=== PATIENT | female | born 1945 | race Caucasian/White ===

== ENCOUNTER 2017-01-27 08:58 | Outpatient (CLI) | payer MEDICARE ==
[2017-01-27 09:39] LABS: HCT - HEMATOCRIT 43.7 % (37.0-47.0); HGB - HEMOGLOBIN 14.4 g/dL (12.0-16.0); MEAN CORPUSCULAR HEMOGLOBIN 29.4 pg (27.0-31.0); MEAN CORPUSCULAR HGB CONC 33.1 g/dL (32.0-36.0); MEAN PLATELET VOLUME 8.8 fL (7.9-10.8); RED BLOOD COUNT 4.91 10^6/uL (4.20-5.40); RED CELL DISTRIBUTION WIDTH 13.9 % (12.0-15.0); WHITE BLOOD COUNT 6.4 x10^3/uL (4.8-10.8)
[2017-01-27 10:04] LABS: ALBUMIN/GLOBULIN RATIO 1.5 (1.0-2.2); BILIRUBIN,TOTAL 0.9 mg/dL (0.2-1.0); BUN - BLOOD UREA NITROGEN 10 mg/dL (6-20); CALCIUM 10.3 mg/dL (8.5-10.3); CARBON DIOXIDE - CO2 24 mmol/L (21-32); CHLORIDE 104 mmol/L (101-111); CHOL/HDL RATIO 5.3 (<4.4); CHOLESTEROL 218 mg/dL; CREATININE 0.7 mg/dL (0.4-1.0); GFR - MDRD 82 (>89); GLUCOSE 110 mg/dL (70-100); HDL CHOLESTEROL 41 mg/dL; LDL/HDL RATIO 3.6 (<4.4); POTASSIUM 3.7 mmol/L (3.5-5.0); SODIUM 136 mmol/L (135-145); TOTAL PROTEIN 7.4 g/dL (6.7-8.2); TRIGLYCERIDES 151 mg/dL; VLDL CHOLESTEROL 30 mg/dL
== END 2017-01-27 08:59 | disposition home or self-care (01) ==
LOC: LAB 08:58
PROVIDERS: ATTEND Internal Medicine
DX: E78.2 Mixed hyperlipidemia (principal); I10 Essential (primary) hypertension; E55.9 Vitamin D deficiency, unspecified; D50.9 Iron deficiency anemia, unspecified; Z79.899 Other long term (current) drug therapy
CPT/HCPCS: 36415; 80053; 80061; 82306; 84443

== ENCOUNTER 2017-10-01 08:16 | Outpatient (CLI) | payer MEDICARE ==
[2017-10-01 08:37] LABS: HGB - HEMOGLOBIN 15.3 g/dL (12.0-16.0); MEAN CORPUSCULAR HEMOGLOBIN 29.7 pg (27.0-31.0); MEAN CORPUSCULAR HGB CONC 33.4 g/dL (32.0-36.0); MEAN PLATELET VOLUME 8.8 fL (7.9-10.8); RED BLOOD COUNT 5.14 10^6/uL (4.20-5.40); RED CELL DISTRIBUTION WIDTH 14.3 % (12.0-15.0); WHITE BLOOD COUNT 7.9 x10^3/uL (4.8-10.8)
[2017-10-01 09:05] LABS: ALBUMIN 4.3 g/dL (3.2-5.5); ALBUMIN/GLOBULIN RATIO 1.4 (1.0-2.2); ALKALINE PHOSPHATASE 95 IU/L (42-121); ALT ALANINE AMINOTRANSFERASE 50 IU/L (10-60); AST ASPARTATE AMINOTRANSFERASE 33 IU/L (10-42); BILIRUBIN,TOTAL 0.7 mg/dL (0.2-1.0); BUN - BLOOD UREA NITROGEN 10 mg/dL (6-20); CARBON DIOXIDE - CO2 25 mmol/L (21-32); CHLORIDE 104 mmol/L (101-111); CHOL/HDL RATIO 4.1 (<4.4); CHOLESTEROL 215 mg/dL; CREATININE 0.7 mg/dL (0.4-1.0); GFR - MDRD 82 (>89); GLUCOSE 107 mg/dL (70-100); HDL CHOLESTEROL 52 mg/dL; LDL CHOLESTEROL,CALCULATED 143 mg/dL; LDL/HDL RATIO 2.8 (<4.4); SODIUM 140 mmol/L (135-145); TOTAL PROTEIN 7.3 g/dL (6.7-8.2); VLDL CHOLESTEROL 20 mg/dL
[2017-10-01 09:26] LABS: THYROID STIMULATING HORMONE 2.99 uIU/mL (0.34-5.60)
[2017-10-01 09:28] LABS: FREE T4 (FREE THYROXINE) 0.79 ng/dL (0.58-1.64)
== END 2017-10-01 08:17 | disposition home or self-care (01) ==
LOC: LAB 08:16
PROVIDERS: ATTEND Internal Medicine
DX: E78.2 Mixed hyperlipidemia (principal); I10 Essential (primary) hypertension; D50.9 Iron deficiency anemia, unspecified; E55.9 Vitamin D deficiency, unspecified
CPT/HCPCS: 36415; 80053; 80061; 83721; 83970; 84439; 84443

== ENCOUNTER 2018-03-02 14:23 | Outpatient (CLI) | payer MEDICARE ==
--- NOTE | 2018-03-02 15:56 | DEXA Report ---
Procedure Date: 03/02/2018 Accession Number: [id number] / [id number] Procedure: DEX - Dexa Spine and/or Hip CPT Code: FULL RESULT: EXAM: Dexa Spine and/or Hip DATE: 03/02/2018 3:13 PM CLINICAL HISTORY: HYPERPARATHYROIDISM TECHNIQUE: Dual energy x-ray absorptiometry (DXA) was performed on a Bottlenose System. Regions measured are the AP Spine, femoral neck, and if needed forearm. COMPARISON: None. In accordance with the International Society for Clinical Densitometry (ISCD) guidelines, data from previous exams may be reanalyzed using current recommendations and techniques. This is done to allow a more accurate basis for comparison with the current study. FINDINGS: The data for the lumbar spine is as follows: BMD (g/cm/cm) T-SCORE Z-SCORE REGION L1 0.849 -2.3 -1.4 L2 0.958 -2.0 -1.1 L3 0.848 -2.9 -2.0 L4 1.021 -1.5 -0.5 TOTAL 0.923 -2.1 -1.2 NOTE: All evaluable vertebrae are used for classification The data for the hip is as follows: BMD (g/cm/cm) T-SCORE Z-SCORE REGION Neck 0.684 -2.5 -1.2 TOTAL 0.822 -1.5 -0.4 NOTE: The femoral neck or total proximal femur, whichever is lowest, is used for classification. IMPRESSION: THE WHO CLASSIFICATION BASED ON THE INTERNATIONAL REFERENCE STANDARD IS OSTEOPOROSIS. THE FRACTURE RISK IS HIGH. RECOMMENDATION: Patients with diagnosis of osteoporosis or osteopenia should have regular bone mineral density assessment. For those eligible for Medicare, routine testing is allowed once every 2 years. Testing frequency can be increased for patients who have rapidly progressing disease or for those who are receiving medical therapy to restore bone mass. COMMENT: World Health Organization (WHO) definitions for osteoporosis and osteopenia: NORMAL BMD: T-score at -1.0 or higher, fracture risk is low OSTEOPENIA BMD: T-score between -1.0 and -2.5, fracture risk is increased. OSTEOPOROSIS BMD: T-score at -2.5 or lower, fracture risk is high. National Osteoporosis Foundation recommends: 1. Obtain adequate dietary calcium (at least 1200 mg per day) and vitamin D (400-800 international units per day). 2. Participate, as appropriate, in regular weightbearing and muscle-strengthening exercise. 3. Avoid tobacco use and reduce alcohol and caffeine intake. 4. For more detailed information see the website at www.NOF.org.
== END 2018-03-02 14:24 | disposition home or self-care (01) ==
LOC: DI 14:23
PROVIDERS: ATTEND Internal Medicine Endocrinology, Diabetes & Metabolism
DX: M81.0 Age-related osteoporosis without current pathological fracture (principal)
CPT/HCPCS: 77080

== ENCOUNTER 2018-03-07 08:30 | Outpatient (CLI) | payer MEDICARE | END 2018-03-07 08:31 | disposition home or self-care (01) | LOC: LAB.R 08:30 | PROVIDERS: ATTEND Internal Medicine Endocrinology, Diabetes & Metabolism | DX: E21.3 Hyperparathyroidism, unspecified (principal) | CPT/HCPCS: 82340 ==

== ENCOUNTER 2018-03-19 09:25 | Outpatient (CLI) | payer MEDICARE ==
--- NOTE | 2018-03-19 15:42 | Nuclear Medicine Report ---
REVISED: THIS REPORT WAS ORIGINALLY SIGNED ON 03/19/2018 @ 1543. EXAM CODE REVISED ON 04/14/2018. Procedure Date: 03/19/2018 Accession Number: [id number] / [id number] Procedure: NM - Parathyroid Planar Imaging CPT Code: FULL RESULT: EXAM: PARATHYROID SCAN WITH SESTAMIBI, PLANAR AND SPECT IMAGING EXAM DATE: 03/19/2018 01:11 PM. CLINICAL HISTORY: Hyperparathyroidism. COMPARISON: None. TECHNIQUE: Following the intravenous administration of 23.3 mCi Tc-99m sestamibi, planar images of the neck and upper chest were acquired immediately, and at one and two hours post injection. Additionally, a SPECT image was acquired according to the protocol; images were reconstructed in the axial, coronal, and sagittal projections. FINDINGS: The multiple planar sestamibi images demonstrate normal back on salivary gland uptake as well as the hyperintense focus in the region of the inferior right thyroid Gland. The SPECT sestamibi images demonstrate a hyperintense focus in the region of the right lower thyroid gland. Right anterior ectopic parathyroid adenoma in the region of the inferior right thyroid gland lobe. No significant abnormalities in the remainder of the study. IMPRESSION: Scintigraphic findings are consistent with a parathyroid adenoma at the right lower pole of the thyroid gland. Further anatomic correlation with thyroid ultrasound can be obtained. RADIA MTDD
== END 2018-03-19 09:26 | disposition home or self-care (01) ==
LOC: DI 09:25
PROVIDERS: ATTEND Internal Medicine Endocrinology, Diabetes & Metabolism
DX: E21.0 Primary hyperparathyroidism (principal)
CPT/HCPCS: 78070; 78071

== ENCOUNTER 2018-05-19 19:08 | Outpatient (CLI) | payer MEDICARE ==
--- NOTE | 2018-05-20 15:06 | Ultrasound Report ---
Reason: HYPERPARATHYROIDISM Procedure Date: 05/19/2018 Accession Number: [id number] / [id number] Procedure: US - Head or Neck Soft Tissue CPT Code: FULL RESULT: EXAM: THYROID ULTRASOUND EXAM DATE: 05/19/2018 07:48 PM. CLINICAL HISTORY: Hyperparathyroidism. COMPARISON: Parathyroid nuclear medicine scan 03/19/2018. Thyroid ultrasound 12/15/2014. TECHNIQUE: Real time sonographic imaging of the thyroid was performed by the airplane inspector. Multiple artists' booking representative static images were saved for review. FINDINGS: THYROID GLAND: Right Lobe: 2.4 x 2.4 x 5.0 cm, volume 14.6 cc. Normal background echotexture. Right Lobe Nodules: None. Left Lobe: 1.9 x 1.9 x 5.6 cm, volume 10.5 cc. Normal background echotexture. Left Lobe Nodules: 0.6 x 0.5 x 0.8 cm, 0.13 cc, avascular hypoechoic lesion superior pole unchanged. 0.4 x 0.4 x 0.5 cm, 0.04 cc, isoechoic avascular nodule mid pole unchanged. No new nodules. Isthmus: 0.5 cm AP. Isthmic Nodules: None. LYMPH NODES: No adenopathy demonstrated in the central or lateral compartment. OTHER: 1.2 x 1.6 x 2.3 cm, 2.4 cc, grossly stable well-defined hypoechoic avascular lesion with low level internal echoes abutting the posterior inferior aspect right lobe of the thyroid. This corresponds to the area of hyperintense focus on the previous nuclear medicine exam. IMPRESSION: 1. Stable 1.2 x 1.6 x 2.3 cm abnormality posterior to the inferior right lobe thyroid consistent with parathyroid adenoma. Stability would be atypical for parathyroid carcinoma. 2. Several small incidental left thyroid nodules. 3. No dominant thyroid nodule. Management recommendations are based on 2015 [place] [employer] Management Guidelines for Adult Patients with Thyroid Nodules and Differentiated Thyroid Cancer. RADIA
== END 2018-05-19 19:09 | disposition home or self-care (01) ==
LOC: DI 19:08
PROVIDERS: ATTEND Student in an Organized Health Care Education/Training Program
DX: E21.3 Hyperparathyroidism, unspecified (principal)
CPT/HCPCS: 76536

== ENCOUNTER 2018-06-08 15:14 | Outpatient (CLI) | payer MEDICARE | END 2018-06-08 15:15 | disposition home or self-care (01) | LOC: RT 15:14 | PROVIDERS: ATTEND Internal Medicine Gastroenterology | DX: I10 Essential (primary) hypertension (principal) | CPT/HCPCS: 93005 ==

== ENCOUNTER 2018-06-10 11:41 | Day surgery (SDC) | payer MEDICARE ==
[2018-06-10] MEDS ORDERED: MIDAZOLAM 2 MG/2 ML VIAL IVP ONE (11:42)
[2018-06-10] MEDS ORDERED: fentaNYL 250 MCG/5 ML VIAL IVP ONE (11:42)
[2018-06-10] MEDS ORDERED: LACTATED RINGERS 1,000 ML IV ONE ×2 (12:05→14:32)
[2018-06-10 12:30] LABS: CALCIUM 10.5 mg/dL (8.5-10.3); CREATININE 0.6 mg/dL (0.4-1.0)
[2018-06-10 15:24] VITALS: BP 140/70
== END 2018-06-10 11:42 | disposition home or self-care (01) ==
LOC: SDS 11:41
PROVIDERS: ATTEND Internal Medicine Gastroenterology
PROC: 0DBP8ZZ Excision of Rectum, Via Natural or Artificial Opening Endoscopic (ICD-10-PCS; principal; 2018-06-10 12:45)
DX: Z12.11 Encounter for screening for malignant neoplasm of colon (principal); C20 Malignant neoplasm of rectum; K57.30 Diverticulosis of large intestine without perforation or abscess without bleeding; I10 Essential (primary) hypertension; E21.3 Hyperparathyroidism, unspecified; E78.5 Hyperlipidemia, unspecified; F41.9 Anxiety disorder, unspecified; E66.9 Obesity, unspecified; Z68.34 Body mass index [BMI] 34.0-34.9, adult; N32.81 Overactive bladder
CPT/HCPCS: 45385; 80048; J3010; J7120

== ENCOUNTER 2018-06-16 15:00 | Outpatient (CLI) | payer MEDICARE ==
[2018-06-16 15:31] LABS: BASOPHILS # (AUTO) 0.1 10^3/uL (0.0-0.1); BASOPHILS % (AUTO) 0.9 %; EOSINOPHILS # (AUTO) 0.1 10^3/uL (0.0-0.7); EOSINOPHILS % (AUTO) 0.8 %; HGB - HEMOGLOBIN 13.6 g/dL (12.0-16.0); LYMPHOCYTES # (AUTO) 2.5 10^3/uL (1.5-3.5); LYMPHOCYTES % (AUTO) 33.5 %; MEAN CORPUSCULAR HEMOGLOBIN 30.4 pg (27.0-31.0); MEAN CORPUSCULAR HGB CONC 34.1 g/dL (32.0-36.0); MEAN CORPUSCULAR VOLUME 89.1 fL (81.0-99.0); MEAN PLATELET VOLUME 8.5 fL (7.9-10.8); MONOCYTES # (AUTO) 0.6 10^3/uL (0.0-1.0); MONOCYTES % (AUTO) 8.5 %; NEUTROPHILS # (AUTO) 4.3 10^3/uL (1.5-6.6); NEUTROPHILS % (AUTO) 56.3 %; PLT - PLATELET COUNT 247 10^3/uL (130-450); RED BLOOD COUNT 4.49 10^6/uL (4.20-5.40); RED CELL DISTRIBUTION WIDTH 13.8 % (12.0-15.0); WHITE BLOOD COUNT 7.6 x10^3/uL (4.8-10.8)
[2018-06-16 15:40] LABS: ALBUMIN/GLOBULIN RATIO 1.2 (1.0-2.2); BILIRUBIN,TOTAL 0.9 mg/dL (0.2-1.0); CALCIUM 10.4 mg/dL (8.5-10.3); CREATININE 0.7 mg/dL (0.4-1.0); TOTAL PROTEIN 7.4 g/dL (6.7-8.2)
== END 2018-06-16 15:01 | disposition home or self-care (01) ==
LOC: LAB 15:00
PROVIDERS: ATTEND Internal Medicine Gastroenterology
DX: C20 Malignant neoplasm of rectum (principal); E21.3 Hyperparathyroidism, unspecified
CPT/HCPCS: 36415; 80053; 82378; 85025

== ENCOUNTER 2018-06-18 09:38 | Outpatient (CLI) | payer MEDICARE ==
[2018-06-18] MEDS ORDERED: IOVERSOL 320 50 ML VIAL ONE (10:15)
[2018-06-18] MEDS ORDERED: IOPAMIDOL-300 100 ML VIAL ONE (10:15)
[2018-06-18] MEDS ORDERED: IOPAMIDOL-300 100 ML VIAL IVP ONE (11:00)
--- NOTE | 2018-06-18 15:40 | CT Report ---
Reason: HYPERPARATHYROIDISM, RECTAL CANCER Procedure Date: 06/18/2018 Accession Number: [id number] / [id number] Procedure: CT - Abdomen/Pelvis W/ CPT Code: FULL RESULT: EXAM: CT CHEST, ABDOMEN AND PELVIS EXAM DATE: 06/18/2018 11:11 AM. CLINICAL HISTORY: Hyperparathyroidism, rectal cancer. COMPARISONS: ABDOMEN/PELVIS W/ 06/18/2018 11:18 AM ABDOMEN 01/13/2008 1:48 PM CHEST W/ 06/18/2018 11:23 AM. TECHNIQUE: Routine helical CT imaging was performed through the chest, abdomen and pelvis. IV contrast: CE. Enteric contrast: No. Reconstructions: Coronal and sagittal. In accordance with CT protocol optimization, one or more of the following dose reduction techniques were utilized for this exam: automated exposure control, adjustment of mA and/or KV based on patient size, or use of iterative reconstructive technique. FINDINGS: Lungs: Minimal right middle lobe atelectasis. No suspicious pulmonary nodules. No pleural effusion or pneumothorax. Mediastinum: Mild aortic calcifications. Liver: Normal. No masses. Gallbladder/Bile Ducts: Status post cholecystectomy. Spleen: Evidence of prior granulomatous disease. Pancreas: Normal. Adrenal Glands: Mild thickening of the left greater than right adrenal glands, possible adrenal adenoma. No definite metastasis. Kidneys: Left kidney contains a 1.7 cm hypodense mass which represents a cyst versus a lipid poor angiomyolipoma in the region of the renal pelvis, stable compared to January 2008. Similarly, the right kidney demonstrates a 1.8 cm lower pole hypodense mass, not definitely seen in 2007 with imaging appearance again suggestive of less likely cyst versus a lipid poor angiomyolipoma. Both kidneys demonstrate hypodensities which are too small to characterize. Peritoneal Cavity/Bowel: Diverticulosis. Likely mass in the rectal region, correlate to a known location of rectal cancer. No overt CT evidence of local invasion into the ischioanal fossa. No free fluid, free air or adenopathy. No masses or acute inflammatory process. Pelvic Organs: There is a 6.8 cm left adnexal cystic mass. The bladder and visualized pelvic organs are within normal limits. Vasculature: No aneurysms or other significant abnormality. Bones: No significant abnormality. Other: None. IMPRESSION: 1. 6.8 cm left adnexal cystic mass. 2. 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 This could be further evaluate by ultrasound to differentiate from a cyst. 3. No definite pelvic lymphadenopathy. RADIA
== END 2018-06-18 09:39 | disposition home or self-care (01) ==
LOC: DI 09:38
PROVIDERS: ATTEND Internal Medicine Gastroenterology
DX: N94.9 Unspecified condition associated with female genital organs and menstrual cycle (principal); N28.9 Disorder of kidney and ureter, unspecified
CPT/HCPCS: 71260; 74177; Q9967

== ENCOUNTER 2018-08-26 10:43 | Day surgery (SDC) | payer MEDICARE ==
[2018-08-26] MEDS ORDERED: LACTATED RINGERS 1,000 ML IV ONE (11:07)
[2018-08-26] MEDS ORDERED: MIDAZOLAM 2 MG/2 ML VIAL IVP ONE (12:25)
[2018-08-26] MEDS ORDERED: fentaNYL 250 MCG/5 ML VIAL IVP ONE (12:25)
[2018-08-26 13:46] VITALS: BP 148/75
== END 2018-08-26 10:44 | disposition home or self-care (01) ==
LOC: SDS 10:43
PROVIDERS: ATTEND Internal Medicine Gastroenterology
PROC: 0DBP8ZX Excision of Rectum, Via Natural or Artificial Opening Endoscopic, Diagnostic (ICD-10-PCS; principal; 2018-08-26 11:45)
DX: C20 Malignant neoplasm of rectum (principal); K57.30 Diverticulosis of large intestine without perforation or abscess without bleeding; N94.89 Other specified conditions associated with female genital organs and menstrual cycle; E21.3 Hyperparathyroidism, unspecified; R19.09 Other intra-abdominal and pelvic swelling, mass and lump; I10 Essential (primary) hypertension; E66.9 Obesity, unspecified; Z68.34 Body mass index [BMI] 34.0-34.9, adult; N32.81 Overactive bladder
CPT/HCPCS: 45380; J3010; J7120; 80053

== ENCOUNTER 2018-12-21 16:53 | Outpatient (CLI) | payer MEDICARE ==
--- NOTE | 2018-12-22 12:10 | Ultrasound Report ---
Reason: F/U LT ADNEXAL MASS, UT MASS Procedure Date: 12/21/2018 Accession Number: [id number] / [id number] Procedure: US - Pelvic Complete CPT Code: FULL RESULT: EXAM: PELVIC ULTRASOUND EXAM DATE: 12/21/2018 05:31 PM. CLINICAL HISTORY: Follow up left adnexal mass, uterine mass. COMPARISON: PELVIC W/TRANSVAGINAL 01/29/2016 5:17 PM ABDOMEN/PELVIS W/ 06/18/2018 11:23 AM. TECHNIQUE: Realtime transabdominal pelvic scan performed to identify the uterus and adnexa and as an overview of other pelvic structures, with static image documentation. FINDINGS: Uterus: 9.7 x 3.7 x 5.6 cm, volume 10.5 cc. Anteverted position. Normal overall size and echotexture. Masses: None. Endometrium: 21 mm. Abnormal thickness, not well defined. Cervix: Limited visualization. Left Ovary: 7.6 x 7.0 x 8.6 cm, volume 242 cc. The 5.8 x 5.3 x 5.7 cm thick-walled cystic mass is again seen, not well characterized transabdominally. Right Ovary: Not seen Free Fluid: None. Other: None. IMPRESSION: Redemonstration of left adnexal cystic mass measuring at least 5.8 cm. Ill-defined thickened endometrium, not a normal finding in the postmenopausal state. RADIA
== END 2018-12-21 16:54 | disposition home or self-care (01) ==
LOC: DI 16:53
PROVIDERS: ATTEND Obstetrics & Gynecology
DX: N94.89 Other specified conditions associated with female genital organs and menstrual cycle (principal); R19.09 Other intra-abdominal and pelvic swelling, mass and lump
CPT/HCPCS: 76856

== ENCOUNTER 2019-01-06 15:25 | Outpatient (CLI) | payer MEDICARE | END 2019-01-06 15:26 | disposition home or self-care (01) | LOC: LAB 15:25 | PROVIDERS: ATTEND Internal Medicine Gastroenterology | DX: R19.09 Other intra-abdominal and pelvic swelling, mass and lump (principal); C20 Malignant neoplasm of rectum; N94.89 Other specified conditions associated with female genital organs and menstrual cycle | CPT/HCPCS: 36415; 81599; 82378; 86304; 86305 ==

== ENCOUNTER 2019-01-25 16:20 | Outpatient (CLI) | payer MEDICARE ==
[2019-01-25 16:41] LABS: BASOPHILS # (AUTO) 0.1 10^3/uL (0.0-0.1); BASOPHILS % (AUTO) 0.5 %; EOSINOPHILS % (AUTO) 0.3 %; HGB - HEMOGLOBIN 14.5 g/dL (12.0-16.0); LYMPHOCYTES # (AUTO) 3.7 10^3/uL (1.5-3.5); MEAN CORPUSCULAR HEMOGLOBIN 29.1 pg (27.0-31.0); MEAN CORPUSCULAR HGB CONC 31.7 g/dL (32.0-36.0); MEAN CORPUSCULAR VOLUME 91.8 fL (81.0-99.0); MEAN PLATELET VOLUME 10.5 fL (7.9-10.8); MONOCYTES # (AUTO) 0.7 10^3/uL (0.0-1.0); MONOCYTES % (AUTO) 7.7 %; NEUTROPHILS # (AUTO) 4.7 10^3/uL (1.5-6.6); NEUTROPHILS % (AUTO) 51.2 %; PLT - PLATELET COUNT 270 10^3/uL (130-450); RED BLOOD COUNT 4.98 10^6/uL (4.20-5.40); RED CELL DISTRIBUTION WIDTH 13.8 % (12.0-15.0); WHITE BLOOD COUNT 9.2 x10^3/uL (4.8-10.8)
[2019-01-25 16:53] LABS: ALBUMIN 4.4 g/dL (3.2-5.5); ALBUMIN/GLOBULIN RATIO 1.5 (1.0-2.2); BILIRUBIN,TOTAL 0.7 mg/dL (0.2-1.0); CALCIUM 11.1 mg/dL (8.5-10.3); CREATININE 0.8 mg/dL (0.4-1.0); TOTAL PROTEIN 7.4 g/dL (6.7-8.2)
== END 2019-01-25 16:21 | disposition home or self-care (01) ==
LOC: LAB 16:20
PROVIDERS: ATTEND Obstetrics & Gynecology
DX: N18.4 Chronic kidney disease, stage 4 (severe) (principal); N84.0 Polyp of corpus uteri
CPT/HCPCS: 80053; 85025; 86850; 86900; 86901

== ENCOUNTER 2019-01-26 10:52 | Day surgery (SDC) | payer MEDICARE ==
[2019-01-26] MEDS ORDERED: LIDOCAINE-MPF 2% 5 ML VIAL IM ONE (10:53)
[2019-01-26] MEDS ORDERED: LACTATED RINGERS 1,000 ML IV ONE ×2 (11:00→16:47)
--- NOTE | 2019-01-26 13:02 | ANESTHESIA ---
Pre-Anesthesia VS, & Labs - Diagnosis Endometrial polyp - Procedure Resect endometrial polyp Vital Signs: Temp Pulse Resp BP Pulse Ox 36.7 C 89 18 156/89 H 96 01/26/19 11:16 01/26/19 11:16 01/26/19 11:16 01/26/19 11:16 01/26/19 11:16 Height 5 ft 3 in Weight (kg) 88 kg - NPO >8 hours - Is Patient ?: No - Lab Results Lab results reviewed: Yes Home Medications and Allergies Home Medications: Ambulatory Orders medroxyPROGESTERone [Provera] 10 mg PO DAILY 01/26/19 Losartan [Cozaar] 50 mg PO DAILY 06/09/18 medroxyPROGESTERone [Provera] 10 mg PO DAILY 01/26/19 Allergies/Adverse Reactions: Allergies Allergy/AdvReac Type Severity Reaction Status Date / Time ciprofloxacin [From Cipro] AdvReac Unknown Verified 01/26/19 11:27 Anes History & Medical History - Anesthetic History Anesthesia Complications: reports: Post-Operative Nausea/Vomiting Family history of Anesthesia Complications: Denies Family history of Malignant Hyperthermia: Denies - Medical History Cardiovascular: reports: Hypertension Pulmonary: reports: None Gastrointestinal: reports: Colon polyps Urinary: reports: Incontinence Neuro: reports: None Musculoskeletal: reports: None Endocrine/Autoimmune: reports: None Blood Disorders: reports: None Skin: reports: None Smoking Status: Never smoker Psychosocial: reports: No issues indicated - Surgical History General: Colonoscopy Eyes Ears Nose Throat (EENT): Tonsil/Adenoidectomy Gynecologic: Other Exam General: Alert, Oriented x3 Dental: WNL Mouth Openin Fingerbreadth Neck Mobility: Reduced Mallampati classification: II Thyromental Distance: 4-6 cm Respiratory: Lungs clear Cardiovascular: Regular rate Neurological: Normal speech Mental/Cognitive Status: Alert/Oriented X3 Cognitive Status: Within normal limits Plan Anesthesia Type: General Consent for Procedure(s) Verified and Reviewed: Yes Code Status: Attempt Resuscitation ASA classification: 2-Mild systemic disease Is this case an emergency?: No
[2019-01-26] MEDS ORDERED: SCOPOLAMINE PATCH TOP ONE (13:10)
[2019-01-26] MEDS ORDERED: LIDOCAINE 1%-EPI 1:100000 20 ML MDV ONE (13:29)
[2019-01-26] MEDS ORDERED: LIDOCAINE MPF 1%-EPI 1:200000 30 ML VIAL ONE (14:30)
[2019-01-26] MEDS ORDERED: SILVER NITRATE APPLICATOR TOP ONE (14:31)
[2019-01-26] MEDS ORDERED: MIDAZOLAM 2 MG/2 ML VIAL IVP ONE (16:30)
[2019-01-26] MEDS ORDERED: fentaNYL 100 MCG/2 ML VIAL IVP ONE (16:30)
[2019-01-26] MEDS ORDERED: PROPOFOL 200 MG/20 ML VIAL IVP ONE (16:30)
[2019-01-26] MEDS ORDERED: LIDOCAINE 1%-EPI 1:100000 20 ML MDV SUBQ ONE ×2 (16:46)
[2019-01-26] MEDS ORDERED: CARBOPROST TROMETHAMINE 250 MCG/ML AMP IM ONE (16:49)
[2019-01-26] MEDS ORDERED: miSOPROStol 200 MCG TABLET ONE (16:49)
[2019-01-26] MEDS ORDERED: METHYLERGONOVINE 0.2 MG/ML AMP ONE (16:50)
[2019-01-26] MEDS ORDERED: KETOROLAC 15 MG/ML VIAL IVP PRN (17:39)
--- NOTE | 2019-01-26 17:42 | OPERATIVE REPORT ---
Operative Report - General Planned Procedure: Resection of extrauterine mass Hysteroscopy D&C/polypectomy Pre-Op Diagnosis: Large endometrial polyp protruding through introitus; postmenopausal bleedi Procedure Performed: Resection of extrauterine mass Hysteroscopy D&C/polypectomy Post Op Diagnosis: same - Procedure Note Primary Surgeon: Laron Anesthesia Technique: General ET tube Pathology: Extrauterine mass Uterine contents. Specimens sent as one sample IV Fluids (mL): 800 (750 cc NS in fluid deficit) Estimated Blood Loss (mL): 15 Urine Output (mL): 700 (Collected in Ruelas catheter AFTER patient voided) Indications: Large endometrial polyp protruding through vaginal introitus, rapidly expanding in size. Postmenopausal bleeding, increasing in volume Findings: Large polypoid mass hanging external to the vagina. Bulk of mass measured 11 cm in longtudinal direction and 4.5 cm in width. Additional stalk of polyp extended into the uterus,measuring at least 4 cm in length, but about 1 cm in width. Other polypoid tissue in the endometrial cavity. Large, flaccid uterine with boggy myometrium, gaping cervix. Bilateral tubal ostia visualized. Complications: none - Other Other Information/Narrative: PROCEDURE: Patient was consented to the risks and benefits of the procedure. Consent obtained for hysteroscopy, D&C, polpectomy/resection of mass, as well as possible hysterectomy/oophorectomy. Consents confirmed. Patient was brought to the OR and underwent general anesthesia. She was placed in dorsal lithotomy position with legs in yellow fin stirrups. The polyp was noted to be hanging from the vagina with about 10 cm externally exposed. She was prepped and draped in the usual sterile fashion. A presurgical time out was held. The polyp was then elevated and a tie on a passer was used to ligate the proximal end at its base using 3-0 Vicryl. It was ligated a second time, slightly distal the first, again using 3-0 Vicryl. The segment intervening between the ligated ends was transected using cautery. The bulk of the mass was cleared from the surgical field. A polyps forceps was inserted into the cavity and an additional 4 cm of polypoid tissue was removed. The operative hysteroscope was then inserted and the remainder of the polypoid tissue was removed with the morcellator. The uterine cavity appeared to be cleared of polypoid tissue but there was difficulty expanding the cavity to full volume given dilation of the flaccid cervix. Only minimal improvement was obtained by adding an additional tenaculum. The hysteroscope was removed. Sharp curettage was performed and the minimal residual polypoid tissue was removed. A total of 12 cc of 2% lidocaine with epinephrine was used to place a paracervical block at 4 and 8:00. Tenaculum was removed and good hemostasis was noted. Time out was performed at close of procedure. Procedure was well tolerated and without complication.
[2019-01-26] MEDS ORDERED: KETOROLAC 15 MG/ML VIAL ONE (17:44)
[2019-01-26 18:33] VITALS: BP 175/92
== END 2019-01-26 10:53 | disposition home or self-care (01) ==
LOC: SDS 10:52
PROVIDERS: ATTEND Obstetrics & Gynecology
PROC: 0UDB7ZZ Extraction of Endometrium, Via Natural or Artificial Opening (ICD-10-PCS; 2019-01-26)
PROC: 0UB98ZZ Excision of Uterus, Via Natural or Artificial Opening Endoscopic (ICD-10-PCS; principal; 2019-01-26 12:30)
DX: N84.0 Polyp of corpus uteri (principal); N95.0 Postmenopausal bleeding; I10 Essential (primary) hypertension; E66.9 Obesity, unspecified; Z68.34 Body mass index [BMI] 34.0-34.9, adult; Z79.899 Other long term (current) drug therapy
CPT/HCPCS: 58558; J3490; J7120

== ENCOUNTER 2019-02-24 15:40 | Outpatient (CLI) | payer MEDICARE ==
[2019-02-24 16:00] LABS: HGB - HEMOGLOBIN 13.9 g/dL (12.0-16.0); MEAN CORPUSCULAR HGB CONC 32.4 g/dL (32.0-36.0); MEAN CORPUSCULAR VOLUME 92.5 fL (81.0-99.0); MEAN PLATELET VOLUME 10.3 fL (7.9-10.8); RED BLOOD COUNT 4.64 10^6/uL (4.20-5.40); RED CELL DISTRIBUTION WIDTH 13.9 % (12.0-15.0); WHITE BLOOD COUNT 8.2 x10^3/uL (4.8-10.8)
[2019-02-24 16:40] LABS: % IRON SATURATION 24 % (20-50); CA 125 7.7 U/mL (0.0-35.0); FERRITIN 74.9 ng/mL (11.0-306.8); IRON 72 ug/dL (28-170); TOTAL IRON BINDING CAPACITY 302 ug/dL (250-450); TRANSFERRIN 216 mg/dL (192-382)
== END 2019-02-24 15:41 | disposition home or self-care (01) ==
LOC: LAB 15:40
PROVIDERS: ATTEND Obstetrics & Gynecology
DX: N93.9 Abnormal uterine and vaginal bleeding, unspecified (principal); D64.9 Anemia, unspecified; R53.83 Other fatigue; N84.0 Polyp of corpus uteri; N95.0 Postmenopausal bleeding; N94.89 Other specified conditions associated with female genital organs and menstrual cycle; R19.09 Other intra-abdominal and pelvic swelling, mass and lump
CPT/HCPCS: 36415; 82306; 82728; 83540; 84466; 85027; 86304

== ENCOUNTER 2019-06-26 11:13 | Outpatient (CLI) | payer MEDICARE ==
--- NOTE | 2019-06-27 02:26 | Ultrasound Report ---
Reason: ADNEXAL MASS,LEFT Procedure Date: 06/26/2019 Accession Number: [id number] / [id number] Procedure: US - Pelvic w/Transvaginal CPT Code: Final Report FULL RESULT: EXAM: PELVIC ULTRASOUND EXAM DATE: 06/26/2019 12:09 PM. CLINICAL HISTORY: ADNEXAL MASS,LEFT. COMPARISON: PELVIC W/TRANSVAGINAL 12/21/2018 5:00 PM PELVIC W/TRANSVAGINAL 01/29/2016 5:17 PM PELVIS 05/25/2013 10:36 AM. TECHNIQUE: Realtime transabdominal pelvic scan performed to identify the uterus and adnexa and as an overview of other pelvic structures, followed by transvaginal scan to provide greater detail of the uterus and adnexa, with static image documentation. FINDINGS: Uterus: 8.0 x 3.9 x 4.9 cm, volume 81.1 cc. Anteverted position. Small calcified intramuscular fibroid on the left measuring 0.4 x 0.5 x 0.5 cm. The uterus is heterogeneous in appearance. Masses: None. Endometrium: 6 mm. Ill-defined posterior border. Cervix: Nabothian cyst. Right Ovary: 1.9 x 1.0 x 2.1 cm, volume 2.0 cc. There is a suggestion of a small hypoechoic lesion, possibly a cyst measuring 0.9 x 0.7 x 0.9 cm. Left Ovary: 6.8 x 6.7 x 6.7 cm, volume 158.7 cc. Normal blood flow. The large cystic mass now measures 6.6 x 6.5 x 6.3 cm, previously 5.8 x 5.3 x 5.7 cm. No internal solid component is seen. No internal debris or vascularity is seen. The wall does not appear thickened on the transvaginal images. Free Fluid: None. Other: None. IMPRESSION: Slight increase in size of the left adnexal cystic lesion. Suggestion of small right ovarian cystic lesion. No evidence of endometrial thickening on today's exam. RADIA
== END 2019-06-26 11:14 | disposition home or self-care (01) ==
LOC: DI 11:13
PROVIDERS: ATTEND Obstetrics & Gynecology
DX: R19.09 Other intra-abdominal and pelvic swelling, mass and lump (principal); N83.8 Other noninflammatory disorders of ovary, fallopian tube and broad ligament
CPT/HCPCS: 76830; 76856

== ENCOUNTER 2019-06-29 18:50 | Emergency (ER) | payer MEDICARE ==
--- NOTE | 2019-06-29 20:10 | ED Physician Documentation ---
PD HPI HEADACHE - Stated complaint Stated Complaint: HBP/[place] - Chief complaint Chief Complaint: Cardiac - History obtained from History obtained from: Patient - History of Present Illness Timing - onset: How many weeks ago (2) Timing - onset during: Rest Timing - duration: Weeks (2) Timing - details: Gradual onset, Still present, Waxing and waning Location: Front Quality: Throbbing Associated symptoms: Stiff neck. No: Fever, Nausea, Vomiting, Weakness, Numbness, Syncope, Seizure, Eye pain, Vision changes Improved by: Rest Contributing factors: No: Anticoagulated Similar symptoms before: Has not had sx before Recently seen: Not recently seen - Additional information Additional information: 73-year-old female with a history of hypertension and hypercalcemia has developed a headache and increased blood pressure over the past 2 weeks. She has persistence of symptoms and she has now come to the emergency department for evaluation with markedly elevated blood pressure. She is taking her Cozzar and she took an extra dose of her blood pressure medication. Despite this she has continued high blood pressure. Her diastolics are ranging up to 135. She does not have change in mentation. She does have a history of hyperparathyroidism and she does not want an operation. She denies an acute salt load, alcohol withdrawal, non-compliance or dehydration is a possibility for her elevated blood pressure. Her symptoms have been present for about 2 weeks. Review of Systems Constitutional: denies: Fever Eyes: denies: Decreased vision Ears: denies: Ear pain Nose: denies: Congestion Throat: denies: Sore throat Cardiac: denies: Chest pain / pressure, Palpitations Respiratory: denies: Dyspnea, Cough GI: denies: Abdominal Pain, Nausea, Vomiting : denies: Dysuria, Frequency Skin: denies: Rash, Lesions Musculoskeletal: denies: Neck pain, Back pain, Extremity pain Neurologic: reports: Headache. denies: Generalized weakness, Focal weakness, Numbness, Difficulty speaking, Syncope, Seizure, Confused, Altered mental status, Head injury, LOC PD PAST MEDICAL HISTORY - Past Medical History Cardiovascular: Hypertension Respiratory: None Neuro: None Endocrine/Autoimmune: None GI: Colon polyps : Incontinence HEENT: None Psych: None Musculoskeletal: None Derm: None - Past Surgical History General: Colonoscopy /ASSEMBLER: Other HEENT: Tonsil/Adenoidectomy - Present Medications Home Medications: Ambulatory Orders Medication Instructions Recorded Confirmed Losartan [Cozaar] 50 mg PO DAILY 11/07/18 11/28/19 medroxyPROGESTERone [Provera] 10 mg PO DAILY 01/26/19 06/30/19 Metoprolol Succinate 25 mg PO DAILY #20 tab.er.24h 06/30/19 - Allergies Allergies/Adverse Reactions: Allergies Allergy/AdvReac Type Severity Reaction Status Date / Time ciprofloxacin [From Cipro] AdvReac Unknown Verified 06/29/19 19:01 - Social History Does the pt smoke?: No Smoking Status: Never smoker Does the pt drink ETOH?: No Does the pt have substance abuse?: No - Immunizations Immunizations are current?: Yes - POLST Patient has POLST: No PD ED PE NORMAL - Vitals Vital signs reviewed: Yes (marked hypertension ) - General General: Alert and oriented X 3, No acute distress, Well developed/nourished - HEENT HEENT: Atraumatic, PERRL, EOMI, Ears normal, Pharynx benign, Other (dry mucous membranes ) - Neck Neck: Supple, no meningeal sign, No bony TTP - Cardiac Cardiac: RRR, No murmur - Respiratory Respiratory: No respiratory distress, Clear bilaterally - Abdomen Abdomen: Normal bowel sounds, Soft, Non tender, Non distended, No organomegaly - Back Back: No CVA TTP, No spinal TTP - Derm Derm: Normal color, Warm and dry, No rash - Extremities Extremities: No deformity, Normal ROM s pain, No edema, No calf tenderness / cord - Neuro Neuro: Alert and oriented X 3, order filler 2-12 intact, No motor deficit, No sensory deficit, Normal speech Eye Opening: Spontaneous Motor: Obeys Commands Verbal: Oriented GCS Score: 15 - Psych Psych: Normal mood, Normal affect Results - Vitals Vitals: Vital Signs - 24 hr 06/29/19 06/29/19 06/29/19 18:57 19:40 19:43 Temperature 98.6 C H Heart Rate 86 80 Respiratory 14 18 Rate Blood Pressure 154/135 H 244/130 H Blood Pressure 244/130 H [Right] O2 Saturation 97 97 06/29/19 06/29/19 06/29/19 21:00 21:28 22:11 Temperature Heart Rate 79 78 76 Respiratory 16 22 20 Rate Blood Pressure 198/110 H 199/109 H 195/100 H Blood Pressure [Right] O2 Saturation 95 97 96 06/30/19 06/30/19 06/30/19 00:14 00:51 01:25 Temperature Heart Rate 83 82 70 Respiratory 23 25 H 18 Rate Blood Pressure 209/127 H 210/94 H 157/69 H Blood Pressure [Right] O2 Saturation 97 96 97 06/30/19 02:15 Temperature 36.3 C L Heart Rate 67 Respiratory 22 Rate Blood Pressure 162/73 H Blood Pressure [Right] O2 Saturation 95 Oxygen O2 Source Room air - EKG (time done) 2115 Rate: Rate (enter#) (74) Rhythm: NSR Ischemia: Normal ST segments Compare to prior EKG: Unchanged from prior EKG (SPT 06-08-2018 no sig change) Computer interpretation: Agree with computer - Labs Labs: Laboratory Tests 06/29/19 06/29/19 06/29/19 20:40 20:40 21:55 WBC 8.8 RBC 4.80 Hgb 14.5 Hct 44.0 MCV 91.7 MCH 30.2 MCHC 33.0 RDW 13.8 Plt Count 249 MPV 10.9 H Neut # (Auto) 5.1 Lymph # (Auto) 2.9 [place] # (Auto) 0.7 Eos # (Auto) 0.1 Baso # (Auto) 0.1 Absolute Nucleated RBC 0.00 Nucleated RBC % 0.0 Sodium 139 Potassium 3.9 Chloride 104 Carbon Dioxide 27 Anion Gap 8.0 BUN 12 Creatinine 0.7 Estimated GFR (MDRD) 82 L Glucose 123 H Calcium 12.1 H* Total Bilirubin 0.5 AST 28 ALT 37 Alkaline Phosphatase 80 Total Protein 7.9 Albumin 4.7 Globulin 3.2 Albumin/Globulin Ratio 1.5 Lipase 62 H Urine Color LT. YELLOW Urine Clarity CLEAR Urine pH 7.0 Ur Specific [place] 1.010 Urine Protein NEGATIVE Urine Glucose (UA) NEGATIVE Urine Ketones NEGATIVE Urine Occult Blood NEGATIVE Urine Nitrite NEGATIVE Urine Bilirubin NEGATIVE Urine Urobilinogen 0.2 (NORMAL) Ur Leukocyte Esterase NEGATIVE Ur Microscopic Review NOT INDICATED Urine Culture Comments NOT INDICATED Procedures - IVC sono (time) 2024 Bedside IVC sono: IVC measures (cm) (0.92), IVC collapsed c insp (cm) (complete), Dehydration (est 1-2 liter deficit) PD MEDICAL DECISION MAKING - ED course Complexity details: reviewed results, re-evaluated patient, considered differential, d/w patient ED course: 73-year-old female with markedly elevated blood pressure was found to be dehydrated on interrogation the inferior vena cava. She is initially administered saline intravenously. She does have a calcium of 12.1. She is administered clonidine 0.1 orally this has little effect on her blood pressure the hydration has little effect on her blood pressure and she is eventually administered labetalol with prompt improvement in her blood pressure. She is discharged with a script for metoprolol succinate 25mg daily in addition to her Cozarr. Her headache is improved with PO tylenol and she did refuse toradal. I did discuss with the patient indications for surgery for hyperparathyroidism. Hypertension is not by itself an indication bone mineral loss is an indication and she does have history of this although I am not certain of the specific extent. Departure - Departure Disposition: 01 Home, Self Care Clinical Impression: Hypercalcemia, Dehydration Hypertension Qualifiers: Hypertension type: unspecified secondary hypertension Qualified Code(s): I15.9 - Secondary hypertension, unspecified Condition: Stable Instructions: ED Dehydration, ED Hypertension Conf Out Of Control Follow-Up: Sadia Mendoza MD [Primary Care Provider] - Prescriptions: Metoprolol Succinate 25 mg PO DAILY #20 tab.er.24h Discharge Date/Time: 06/30/19 02:25
[2019-06-29] MEDS ORDERED: KETOROLAC 30 MG/ML VIAL IVP STA (20:26)
[2019-06-29] MEDS ORDERED: SODIUM CHLORIDE 0.9% 1,000 ML IV ONE (20:26)
[2019-06-29] MEDS ORDERED: cloNIDine 0.1 MG TABLET PO STA (20:31)
[2019-06-29] MEDS ORDERED: ACETAMINOPHEN 325 MG TABLET PO STA (20:50)
[2019-06-29 20:54] LABS: BASOPHILS # (AUTO) 0.1 10^3/uL (0.0-0.1); BASOPHILS % (AUTO) 0.7 %; EOSINOPHILS # (AUTO) 0.1 10^3/uL (0.0-0.7); EOSINOPHILS % (AUTO) 0.6 %; HGB - HEMOGLOBIN 14.5 g/dL (12.0-16.0); LYMPHOCYTES # (AUTO) 2.9 10^3/uL (1.5-3.5); LYMPHOCYTES % (AUTO) 32.4 %; MEAN CORPUSCULAR HEMOGLOBIN 30.2 pg (27.0-31.0); MEAN CORPUSCULAR VOLUME 91.7 fL (81.0-99.0); MEAN PLATELET VOLUME 10.9 fL (7.9-10.8); MONOCYTES # (AUTO) 0.7 10^3/uL (0.0-1.0); MONOCYTES % (AUTO) 7.8 %; NEUTROPHILS # (AUTO) 5.1 10^3/uL (1.5-6.6); NEUTROPHILS % (AUTO) 58.2 %; PLT - PLATELET COUNT 249 10^3/uL (130-450); RED CELL DISTRIBUTION WIDTH 13.8 % (12.0-15.0); WHITE BLOOD COUNT 8.8 x10^3/uL (4.8-10.8)
[2019-06-29 21:06] LABS: ALBUMIN 4.7 g/dL (3.2-5.5); ALBUMIN/GLOBULIN RATIO 1.5 (1.0-2.2); BILIRUBIN,TOTAL 0.5 mg/dL (0.2-1.0); CREATININE 0.7 mg/dL (0.4-1.0); TOTAL PROTEIN 7.9 g/dL (6.7-8.2)
[2019-06-29 21:08] LABS: CALCIUM 12.1 mg/dL (8.5-10.3)
[2019-06-29 22:17] LABS: BILIRUBIN,URINE NEGATIVE (NEGATIVE); GLUCOSE, URINE (UA) NEGATIVE (NEGATIVE); KETONES,URINE (UA) NEGATIVE (NEGATIVE); LEUKOCYTE ESTERASE, URINE NEGATIVE (NEGATIVE); NITRITE,URINE NEGATIVE (NEGATIVE); OCCULT BLOOD,URINE NEGATIVE (NEGATIVE); PROTEIN,URINE NEGATIVE (NEGATIVE); UROBILINOGEN,URINE 0.2 (NORMAL) E.U./dL (NORMAL)
[2019-06-29 22:22] LABS: CLARITY,URINE CLEAR (CLEAR)
[2019-06-30] MEDS ORDERED: LABETALOL VIAL 200 MG in SODIUM CHLORIDE 0.9% 160 ML IV STA (00:38)
[2019-06-30] MEDS ORDERED: LABETALOL 20 MG/4 ML SYRINGE IVP STA ×2 (00:43→00:52)
[2019-06-30 02:19] VITALS: BP 162/73
[2019-06-30] MEDS ORDERED: METOPROLOL SUCCINATE 25 MG TABLET PO STA (02:23)
== END 2019-06-30 02:25 | disposition home or self-care (01) ==
LOC: ED 18:50
DX: E83.52 Hypercalcemia (principal); E86.0 Dehydration; I15.9 Secondary hypertension, unspecified
CPT/HCPCS: 36415; 80053; 81003; 83690; 85025; 93005; 96361; 96374; 99284; A9270; 81001; 87086

== ENCOUNTER 2019-07-01 14:39 | Emergency (ER) | payer MEDICARE ==
[2019-07-01 15:40] VITALS: BP 152/99
--- NOTE | 2019-07-01 15:44 | ED Physician Documentation ---
History of Present Illness - Stated complaint Stated Complaint: HEADACHE AND HIGH BLOOD PRESSURE - Chief complaint Chief Complaint: Cardiac - History obtained from History obtained from: Patient - History of Present Illness Timing: Today Pain level max: 3 Pain level now: 1 - Additonal information Additional information: 73-year-old female presents to the emergency department stating that her blood pressure was elevated at home today. Systolic of 230. She states that she has been taking the metoprolol but did not take her Cozaar because she did not know she was supposed to take them both. She took her Cozaar prior to coming into the emergency department. No chest pain. No shortness of breath. Does have a slight headache. States she feels like she has nasal congestion. No fever. No cough. Nothing makes it better or worse. Review of Systems Constitutional: denies: Fever, Chills Eyes: denies: Loss of vision, Decreased vision, Photophobia Ears: denies: Loss of hearing Throat: denies: Sore throat Cardiac: denies: Chest pain / pressure, Palpitations Respiratory: denies: Dyspnea, Cough, Wheezing GI: denies: Abdominal Pain, Nausea, Vomiting, Diarrhea Skin: denies: Rash Musculoskeletal: denies: Neck pain, Back pain Neurologic: denies: Focal weakness, Numbness, Syncope, Seizure, Confused, Altered mental status PD PAST MEDICAL HISTORY - Past Medical History Past Medical History: Yes Cardiovascular: Hypertension Respiratory: None Neuro: None Endocrine/Autoimmune: None GI: Colon polyps : Incontinence HEENT: None Psych: None Musculoskeletal: None Derm: None - Past Surgical History 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 HEENT: Tonsil/Adenoidectomy - Present Medications Home Medications: Ambulatory Orders Medication Instructions Recorded Confirmed Losartan [Cozaar] 50 mg PO DAILY 06/09/18 07/01/19 medroxyPROGESTERone [Provera] 10 mg PO DAILY 01/26/19 07/01/19 Metoprolol Succinate 25 mg PO DAILY #20 tab.er.[id number] 06/30/19 07/01/19 Fluticasone [Flonase] 1 sprays KOREY BID PRN #1 bottle 07/01/19 - Allergies Allergies/Adverse Reactions: Allergies Allergy/AdvReac Type Severity Reaction Status Date / Time ciprofloxacin [From Cipro] AdvReac Unknown Verified 07/01/19 14:54 - Social History Does the pt smoke?: No Smoking Status: Never smoker Does the pt drink ETOH?: No Does the pt have substance abuse?: No - Immunizations Immunizations are current?: Yes - POLST Patient has POLST: No PD ED PE NORMAL - Vitals Vital signs reviewed: Yes - General General: Alert and oriented X 3, No acute distress - HEENT HEENT: Moist mucous membranes - Neck Neck: Supple, no meningeal sign - Cardiac Cardiac: RRR - Respiratory Respiratory: No respiratory distress, Clear bilaterally - Derm Derm: Warm and dry - Extremities Extremities: No edema, No calf tenderness / cord - Neuro Neuro: Alert and oriented X 3, 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, No motor deficit, No sensory deficit, Normal speech Eye Opening: Spontaneous Motor: Obeys Commands Verbal: Oriented GCS Score: 15 - Psych Psych: Normal mood, Normal affect Results - Vitals Vitals: Vital Signs - 24 hr 07/01/19 07/01/19 07/01/19 14:48 15:40 15:42 Temperature 36.6 C Heart Rate 77 77 Respiratory 17 18 Rate Blood Pressure 207/87 H 152/99 H O2 Saturation 98 97 Oxygen O2 Source Room air PD MEDICAL DECISION MAKING - ED course Complexity details: reviewed old records, re-evaluated patient, considered differential, d/w patient ED course: Patient presents to the emergency department with hypertension. This decreased while in the emergency department on its own. She does appear to have some sinus inflammation and will place on Flonase for this. She will continue her current medications at home. Patient counseled regarding signs and symptoms for which I believe and urgent re-evaluation would be necessary. Patient with good understanding of and agreement to plan and is comfortable going home at this time This document was made in part using voice recognition software. While efforts are made to proofread this document, sound alike and grammatical errors may occur. Departure - Departure Disposition: 01 Home, Self Care Clinical Impression: Sinusitis Qualifiers: Sinusitis location: frontal Chronicity: acute Recurrence: non-recurrent Qualified Code(s): J01.10 - Acute frontal sinusitis, unspecified Hypertension Qualifiers: Hypertension type: unspecified Qualified Code(s): I10 - Essential (primary) hypertension Condition: Good Instructions: ED HTN Established, ED Headache Sinus Follow-Up: Sadia Mendoza MD [Primary Care Provider] - Within 1 week Prescriptions: Fluticasone [Flonase] 1 sprays KOREY BID PRN #1 bottle PRN Reason: sinus congestion Comments: Continue your medications at home. Follow-up with your doctor for repeat evaluation. Keep a log of your blood pressures at home. Return if you worsen
== END 2019-07-01 15:52 | disposition home or self-care (01) ==
LOC: ED 14:39
DX: J01.10 Acute frontal sinusitis, unspecified (principal); I10 Essential (primary) hypertension
CPT/HCPCS: 99282; 99284

== ENCOUNTER 2019-07-19 11:31 | Outpatient (CLI) | payer MEDICARE | END 2019-07-19 11:32 | disposition home or self-care (01) | LOC: LAB 11:31 | PROVIDERS: ATTEND Internal Medicine | DX: D50.9 Iron deficiency anemia, unspecified (principal); E55.9 Vitamin D deficiency, unspecified; M89.9 Disorder of bone, unspecified; E66.9 Obesity, unspecified | CPT/HCPCS: 36415; 82306; 82310; 83970 ==

== ENCOUNTER 2019-08-18 10:37 | Outpatient (CLI) | payer MEDICARE ==
[2019-08-18 11:21] LABS: CREATININE 0.9 mg/dL (0.4-1.0)
== END 2019-08-18 10:38 | disposition home or self-care (01) ==
LOC: LAB 10:37
PROVIDERS: ATTEND Internal Medicine
DX: E78.2 Mixed hyperlipidemia (principal); E21.0 Primary hyperparathyroidism; I10 Essential (primary) hypertension
CPT/HCPCS: 36415; 80048

== ENCOUNTER 2020-01-23 09:45 | Outpatient (CLI) | payer MEDICARE ==
[2020-01-23 10:34] LABS: ALBUMIN 4.2 g/dL (3.2-5.5); ALBUMIN/GLOBULIN RATIO 1.3 (1.0-2.2); ALKALINE PHOSPHATASE 72 IU/L (42-121); ALT ALANINE AMINOTRANSFERASE 57 IU/L (10-60); AST ASPARTATE AMINOTRANSFERASE 40 IU/L (10-42); BILIRUBIN,TOTAL 0.9 mg/dL (0.2-1.0); BUN - BLOOD UREA NITROGEN 11 mg/dL (6-20); CALCIUM 10.9 mg/dL (8.5-10.3); CARBON DIOXIDE - CO2 29 mmol/L (21-32); CHLORIDE 95 mmol/L (101-111); CHOL/HDL RATIO 5.1 (<4.4); CHOLESTEROL 214 mg/dL; CREATININE 0.8 mg/dL (0.4-1.0); GLUCOSE 122 mg/dL (70-100); HDL CHOLESTEROL 42 mg/dL; LDL CHOLESTEROL,CALCULATED 137 mg/dL; LDL/HDL RATIO 3.3 (<4.4); SODIUM 132 mmol/L (135-145); TOTAL PROTEIN 7.4 g/dL (6.7-8.2); VLDL CHOLESTEROL 35 mg/dL
== END 2020-01-23 09:46 | disposition home or self-care (01) ==
LOC: LAB 09:45
PROVIDERS: ATTEND Obstetrics & Gynecology
DX: I10 Essential (primary) hypertension (principal); N32.81 Overactive bladder; C20 Malignant neoplasm of rectum; R19.09 Other intra-abdominal and pelvic swelling, mass and lump
CPT/HCPCS: 36415; 80053; 80061; 82310; 83721; 86304

== ENCOUNTER 2020-01-27 09:44 | Emergency (ER) | payer MEDICARE ==
[2020-01-27 10:13] LABS: BILIRUBIN,URINE NEGATIVE (NEGATIVE); GLUCOSE, URINE (UA) NEGATIVE (NEGATIVE); KETONES,URINE (UA) NEGATIVE (NEGATIVE); LEUKOCYTE ESTERASE, URINE NEGATIVE (NEGATIVE); NITRITE,URINE NEGATIVE (NEGATIVE); OCCULT BLOOD,URINE NEGATIVE (NEGATIVE); PH,URINE 5.5 PH (5.0-7.5); PROTEIN,URINE NEGATIVE (NEGATIVE); UROBILINOGEN,URINE 0.2 (NORMAL) E.U./dL (NORMAL)
[2020-01-27 10:14] LABS: BASOPHILS % (AUTO) 0.6 %; EOSINOPHILS % (AUTO) 0.2 %; HGB - HEMOGLOBIN 14.2 g/dL (12.0-16.0); LYMPHOCYTES # (AUTO) 2.1 10^3/uL (1.5-3.5); LYMPHOCYTES % (AUTO) 41.8 %; MEAN CORPUSCULAR HEMOGLOBIN 30.5 pg (27.0-31.0); MEAN CORPUSCULAR HGB CONC 34.5 g/dL (32.0-36.0); MEAN CORPUSCULAR VOLUME 88.6 fL (81.0-99.0); MEAN PLATELET VOLUME 10.1 fL (7.9-10.8); MONOCYTES # (AUTO) 0.6 10^3/uL (0.0-1.0); MONOCYTES % (AUTO) 12.3 %; NEUTROPHILS # (AUTO) 2.3 10^3/uL (1.5-6.6); NEUTROPHILS % (AUTO) 44.9 %; PLT - PLATELET COUNT 263 10^3/uL (130-450); RED BLOOD COUNT 4.65 10^6/uL (4.20-5.40); RED CELL DISTRIBUTION WIDTH 12.8 % (12.0-15.0); WHITE BLOOD COUNT 5.1 x10^3/uL (4.8-10.8)
[2020-01-27 10:16] LABS: CLARITY,URINE CLEAR (CLEAR)
[2020-01-27] MEDS ORDERED: KETOROLAC 30 MG/ML VIAL IVP STA (10:21)
--- NOTE | 2020-01-27 10:22 | ED Physician Documentation ---
PD HPI ABD PAIN - Stated complaint Stated Complaint: ABDOMINAL PAIN - Chief complaint Chief Complaint: Abd Pain - History obtained from History obtained from: Patient - Additional information Additional information: 74-year-old woman with history of ovarian cyst, cholecystectomy and recent UTI on Bactrim complains of 2 weeks of nonmigratory right lower quadrant pain with chills. No changes in bowel movements. No measured fevers. No nausea. Review of Systems Ten Systems: 10 systems reviewed and negative Constitutional: reports: Chills. 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 HEENT: Tonsil/Adenoidectomy - Present Medications Home Medications: Ambulatory Orders Medication Instructions Recorded Confirmed Azilsartan Med/Chlorthalidone 01/27/20 [Edarbyclor 40-25 mg Tablet] Dicyclomine [Bentyl] 20 mg PO QID PRN #15 capsule 01/27/20 - Allergies Allergies/Adverse Reactions: Allergies Allergy/AdvReac Type Severity Reaction Status Date / Time ciprofloxacin [From Cipro] AdvReac Unknown Verified 07/01/19 14:54 - Social History Does the pt smoke?: No Smoking Status: Never smoker Does the pt drink ETOH?: No Does the pt have substance abuse?: No - Immunizations Immunizations are current?: Yes - POLST Patient has POLST: No PD ED PE NORMAL - Vitals Vital signs reviewed: Yes - General General: Alert and oriented X 3, No acute distress - HEENT HEENT: PERRL, EOMI - Neck Neck: Supple, no meningeal sign, No bony TTP - Cardiac Cardiac: RRR, No murmur - Respiratory Respiratory: No respiratory distress, Clear bilaterally - Abdomen Abdomen: Normal bowel sounds, Soft, Other (Mild tenderness in the right lower quadrant without surgical signs, well-healed Pfannenstiel and laparoscopy incisions.) - Back Back: No CVA TTP, No spinal TTP - Derm Derm: Normal color, Warm and dry - Neuro Neuro: Alert and oriented X 3, Normal speech Results - Vitals Vitals: Vital Signs - 24 hr 01/27/20 09:55 Temperature 36.8 C Heart Rate 81 Respiratory 16 Rate Blood Pressure 148/98 H O2 Saturation 98 Oxygen O2 Source Room air - Labs Labs: Laboratory Tests 01/27/20 01/27/20 01/27/20 09:48 10:04 10:04 WBC 5.1 RBC 4.65 Hgb 14.2 Hct 41.2 MCV 88.6 MCH 30.5 MCHC 34.5 RDW 12.8 Plt Count 263 MPV 10.1 Neut # (Auto) 2.3 Lymph # (Auto) 2.1 [place] # (Auto) 0.6 Eos # (Auto) 0.0 Baso # (Auto) 0.0 Absolute Nucleated RBC 0.00 Nucleated RBC % 0.0 Sodium 128 L Potassium 3.5 Chloride 95 L Carbon Dioxide 24 Anion Gap 9.0 BUN 12 Creatinine 1.1 H Estimated GFR (MDRD) 49 L Glucose 117 H Calcium 10.4 H Total Bilirubin 0.8 AST 64 H ALT 79 H Alkaline Phosphatase 65 Total Protein 7.4 Albumin 4.7 Globulin 2.7 Albumin/Globulin Ratio 1.7 Lipase 59 H Urine Color YELLOW Urine Clarity CLEAR Urine pH 5.5 Ur Specific [place] 1.010 Urine Protein NEGATIVE Urine Glucose (UA) NEGATIVE Urine Ketones NEGATIVE Urine Occult Blood NEGATIVE Urine Nitrite NEGATIVE Urine Bilirubin NEGATIVE Urine Urobilinogen 0.2 (NORMAL) Ur Leukocyte Esterase NEGATIVE Ur Microscopic Review NOT INDICATED Urine Culture Comments NOT INDICATED - Rads (name of study) CT A/P Radiology: EMP read contemporaneously (No acute disease, interval increase of left ovarian cyst, right renal cyst, hepatic steatosis.) PD MEDICAL DECISION MAKING - ED course ED course: 74-year-old woman with 2 weeks of right lower quadrant pain. Fairly benign exam. Lab work with some elevated liver enzymes likely from hepatic steatosis and Mild hyponatremia. CT without clear cause for pain, could be some [place] of the growing ovarian cyst pressing on right-sided structures or the hepatic steatosis. Close follow-up was advised. Departure - Departure Disposition: 01 Home, Self Care Clinical Impression: Abdominal pain Qualifiers: Abdominal location: right lower quadrant Qualified Code(s): R10.31 - Right lower quadrant pain Condition: Good Record reviewed to determine appropriate education?: Yes Instructions: ED Abdominal Pain Unkn Cause Prescriptions: Dicyclomine [Bentyl] 20 mg PO QID PRN #15 capsule PRN Reason: Abdominal Pain Comments: You were seen today for right lower quadrant pain. Pertinent positive findings were fatty liver both on labs and CT, and interval increase in the left ovarian cyst now measuring 7.1 x 6.8 x 7.1 cm. Also a renal cyst on the right. Please follow-up with your primary care physician, also you are needing a colonoscopy and should have the ultrasound on your ovary done next week as scheduled. Return if worse.
[2020-01-27 10:23] LABS: ALBUMIN 4.7 g/dL (3.2-5.5); ALBUMIN/GLOBULIN RATIO 1.7 (1.0-2.2); BILIRUBIN,TOTAL 0.8 mg/dL (0.2-1.0); CALCIUM 10.4 mg/dL (8.5-10.3); CREATININE 1.1 mg/dL (0.4-1.0); TOTAL PROTEIN 7.4 g/dL (6.7-8.2)
[2020-01-27] MEDS ORDERED: IOVERSOL 320 100 ML VIAL IVP ONE ×2 (10:45→13:40)
--- NOTE | 2020-01-27 11:32 | CT Report ---
PROCEDURE: Abdomen/Pelvis W INDICATIONS: RLQ pain CONTRAST: IV CONTRAST: Optiray 320 ml: 100 PO CONTRAST: *NO PO CONTRAST TECHNIQUE: After the administration of oral and intravenous contrast, 5 mm thick sections acquired from the diap hragms to the symphysis. 5 mm thick coronal and sagittal reformats were acquired. For radiation dos e reduction, the following was used: automated exposure control, adjustment of mA and/or kV accordin g to patient size. COMPARISON: Pelvic ultrasound dated 06/26/2019. CT of abdomen and pelvis dated 06/18/2018. FINDINGS: Image quality: Excellent. ABDOMEN: Lung bases: Lung bases are clear. Heart size is normal. Solid organs: Liver and spleen are normal in size and enhancement. Hepatic steatosis is seen. Gallbl adder is surgically absent. Biliary system is non dilated. Pancreas enhances normally. 1.3 cm left adrenal hypodense nodule is seen unchanged from 2018 study and likely represent benign adrenal adeno ma. No right adrenal nodules. Kidneys demonstrate normal size and show no hydronephrosis. Hypodense areas are again seen scattered in bilateral renal cortices likely represent renal cysts. Previously d escribed 1.8 cm hypodense lesion involving the lower pole of right kidney now measures 2.2 cm in size and 7 Hounsfield units in density. Peritoneum and bowel: There is no bowel obstruction. No abnormal bowel wall thickening or mesenteric fat stranding. Sigmoid diverticulosis is seen, no gross CT evidence of acute diverticulitis. Previous ly described rectal wall thickening is not appreciated on the current study. No free fluid or free ai r. Appendix is not definitively identified. No secondary signs of acute appendicitis is seen right lo wer quadrant abdomen. Nodes and vessels: No retroperitoneal or mesenteric adenopathy by size criteria. Aorta and inferior vena cava are normal in size. Miscellaneous: No ventral hernias. PELVIS: Genitourinary: Bladder wall thickness is normal. No gross abnormality is seen in the uterus and rig ht adnexa. Patient's known large cystic lesion in left adnexa now measures up to 7.1 x 6.8 x 7.1 cm i n size. This lesion measured 6.6 x 6.5 x 6.3 cm in size on the most recent pelvic ultrasound in 2019. Focal hyperdensity/calcification is noted in posterior aspect of this lesion Miscellaneous: No inguinal hernias or adenopathy. Bones: No suspicious bony lesions. No vertebral body compression fractures. IMPRESSION: 1. No evidence of bowel obstruction. Sigmoid diverticulosis. No CT evidence of acute diverticulitis o r acute appendicitis. No free fluid or free air. 2. Interval increase in size of patient's known large cystic lesion in left adnexa now measures up to 7.1 x 6.8 x 7.1 cm in size. 3. Interval slight increase in patient's known hypodense lesion involving the lower pole of right kid nini now measures 2.2 cm in size compared to 1.8 cm in 2018 study. No renal stones or hydronephrosis. Suggestion of tiny subcentimeter bilateral renal cysts. 4. Hepatic steatosis. Prior cholecystectomy. Reviewed by: Oscar Fernandez MD on 01/27/2020 11:30 AM PDT Approved by: Oscar Fernandez MD on 01/27/2020 11:30 AM PDT Station ID: [id number]
[2020-01-27 12:03] VITALS: BP 149/71
== END 2020-01-27 12:26 | disposition home or self-care (01) ==
LOC: ED 09:44
DX: R10.31 Right lower quadrant pain (principal); E87.1 Hypo-osmolality and hyponatremia; K76.0 Fatty (change of) liver, not elsewhere classified; N83.202 Unspecified ovarian cyst, left side; N28.1 Cyst of kidney, acquired; I10 Essential (primary) hypertension; Z90.49 Acquired absence of other specified parts of digestive tract
CPT/HCPCS: 36415; 74177; 80053; 81003; 83690; 85025; 96374; 99284; 99285; Q9967; 81001; 87086

== ENCOUNTER 2020-01-29 11:14 | Outpatient (CLI) | payer MEDICARE ==
--- NOTE | 2020-01-29 13:28 | Ultrasound Report ---
PROCEDURE: Pelvic w/Transvaginal INDICATIONS: L ADNEXAL MASS TECHNIQUE: Real-time scanning was performed of the pelvic organs, with image documentation. Additional endovagi nal scanning was necessary due to incomplete visualization of the adnexal and endometrial structures by transabdominal scanning. COMPARISON: CT abdomen and pelvis dated 01/27/2020, pelvic ultrasound dated 06/26/2019, pelvic ultras ound 12/21/2018. FINDINGS: Transabdominal scanning: Limited scanning through the kidneys shows no hydronephrosis. No pathologi c free abdominal or pelvic fluid. Endovaginal scanning: Uterus: Uterus is normal in size at 7.6 x 4.2 x 4.9 cm. The endometrium measures 3 mm in combined t hickness. An incidental anterior intramural lower uterine segment fibroid measures 0.7 x 0.3 x 0.4 c m. Ovaries: Right ovary measures 2.0 x 1.0 x 1.1 cm. Left ovary measures 7.0 x 6.6 x 7.0 cm. It contain s a large anechoic cystic structure measuring 7.0 x 6.3 x 6.6 cm. This has progressively increased in size. By ultrasound of 12/21/2018 and measured 5.8 x 5.3 x 0.7 cm. On ultrasound of 06/26/2019 it hector sured 6.6 x 6.5 x 6.3 cm. IMPRESSION: 1. Slowly growing cystic lesion of the left adnexa, now measuring 7.0 cm in maximum diameter. 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 Reviewed by: Andrew Cannon MD on 01/29/2020 12:27 PM YIS[facility] Approved by: Andrew Cannon MD on 01/29/2020 12:27 PM YIS[facility] Station ID: [id number]
== END 2020-01-29 11:15 | disposition home or self-care (01) ==
LOC: DI 11:14
PROVIDERS: ATTEND Obstetrics & Gynecology
DX: R19.09 Other intra-abdominal and pelvic swelling, mass and lump (principal)
CPT/HCPCS: 76830; 76856

== ENCOUNTER 2020-02-01 10:13 | Outpatient (CLI) | payer MEDICARE ==
[2020-02-01 10:55] LABS: BILIRUBIN,URINE NEGATIVE (NEGATIVE); GLUCOSE, URINE (UA) NEGATIVE (NEGATIVE); KETONES,URINE (UA) NEGATIVE (NEGATIVE); LEUKOCYTE ESTERASE, URINE NEGATIVE (NEGATIVE); NITRITE,URINE NEGATIVE (NEGATIVE); OCCULT BLOOD,URINE NEGATIVE (NEGATIVE); PH,URINE 6.5 PH (5.0-7.5); PROTEIN,URINE NEGATIVE (NEGATIVE); UROBILINOGEN,URINE 0.2 (NORMAL) E.U./dL (NORMAL)
[2020-02-01 10:57] LABS: CLARITY,URINE CLEAR (CLEAR)
[2020-02-01 11:11] LABS: BUN - BLOOD UREA NITROGEN 14 mg/dL (6-20); CALCIUM 10.6 mg/dL (8.5-10.3); CARBON DIOXIDE - CO2 27 mmol/L (21-32); CHLORIDE 94 mmol/L (101-111); CHOL/HDL RATIO 4.6 (<4.4); CHOLESTEROL 212 mg/dL; CREATININE 0.9 mg/dL (0.4-1.0); GLUCOSE 114 mg/dL (70-100); HDL CHOLESTEROL 46 mg/dL; LDL CHOLESTEROL,CALCULATED 139 mg/dL; SODIUM 129 mmol/L (135-145); VLDL CHOLESTEROL 27 mg/dL
== END 2020-02-01 10:14 | disposition home or self-care (01) ==
LOC: LAB 10:13
PROVIDERS: ATTEND Internal Medicine
DX: I10 Essential (primary) hypertension (principal); E21.0 Primary hyperparathyroidism; E78.2 Mixed hyperlipidemia; N39.0 Urinary tract infection, site not specified; E55.9 Vitamin D deficiency, unspecified; Z79.899 Other long term (current) drug therapy
CPT/HCPCS: 36415; 80048; 80061; 81001; 81003; 82306; 83721; 83970; 87086

== ENCOUNTER 2020-02-07 11:35 | Outpatient (CLI) | payer MEDICARE | END 2020-02-07 11:36 | disposition home or self-care (01) | LOC: LAB 11:35 | PROVIDERS: ATTEND Internal Medicine | DX: D50.9 Iron deficiency anemia, unspecified (principal); E21.0 Primary hyperparathyroidism; E66.9 Obesity, unspecified; I10 Essential (primary) hypertension; Z79.899 Other long term (current) drug therapy | CPT/HCPCS: 36415; 84132; 84295 ==

== ENCOUNTER 2020-03-22 16:44 | Outpatient (CLI) | payer MEDICARE ==
[2020-03-22 21:28] LABS: CANDIDA GROUP DNA NEGATIVE (NEGATIVE); CANDIDA KRUSEI DNA NEGATIVE (NEGATIVE); TRICHOMONAS VAGINALIS DNA NEGATIVE (NEGATIVE)
== END 2020-03-22 23:59 | disposition home or self-care (01) ==
LOC: LAB.R 16:44
PROVIDERS: ATTEND Obstetrics & Gynecology
DX: N76.0 Acute vaginitis (principal)
CPT/HCPCS: 87661; 87801

== ENCOUNTER 2020-04-16 07:14 | Day surgery (SDC) | payer MEDICARE ==
[2020-04-16] MEDS ORDERED: MIDAZOLAM 2 MG/2 ML VIAL IVP ONE (07:15)
[2020-04-16] MEDS ORDERED: fentaNYL 250 MCG/5 ML VIAL IVP ONE (07:15)
[2020-04-16] MEDS ORDERED: LACTATED RINGERS 1,000 ML IV ONE ×2 (07:46→09:07)
[2020-04-16 09:38] VITALS: BP 121/97
== END 2020-04-16 07:15 | disposition home or self-care (01) ==
LOC: SDS 07:14
PROVIDERS: ATTEND Internal Medicine Gastroenterology
PROC: 0DBP8ZZ Excision of Rectum, Via Natural or Artificial Opening Endoscopic (ICD-10-PCS; principal; 2020-04-16 08:15)
DX: Z08 Encounter for follow-up examination after completed treatment for malignant neoplasm (principal); Z85.048 Personal history of other malignant neoplasm of rectum, rectosigmoid junction, and anus; K62.1 Rectal polyp; K57.30 Diverticulosis of large intestine without perforation or abscess without bleeding; I10 Essential (primary) hypertension; E21.3 Hyperparathyroidism, unspecified
CPT/HCPCS: 45380; J3010; J7120

== ENCOUNTER 2020-07-19 15:45 | Outpatient (CLI) | payer MEDICARE ==
[2020-07-20 17:47] LABS: CANDIDA GROUP DNA NEGATIVE (NEGATIVE); CANDIDA KRUSEI DNA NEGATIVE (NEGATIVE); TRICHOMONAS VAGINALIS DNA NEGATIVE (NEGATIVE)
== END 2020-07-19 23:59 | disposition home or self-care (01) ==
LOC: LAB.R 15:45
PROVIDERS: ATTEND Obstetrics & Gynecology
DX: N76.0 Acute vaginitis (principal)
CPT/HCPCS: 87661; 87801

== ENCOUNTER 2020-07-24 09:34 | Outpatient (CLI) | payer MEDICARE ==
[2020-07-24 10:27] LABS: ALBUMIN 4.3 g/dL (3.2-5.5); ALBUMIN/GLOBULIN RATIO 1.3 (1.0-2.2); BILIRUBIN,TOTAL 0.5 mg/dL (0.2-1.0); CALCIUM 11.4 mg/dL (8.5-10.3); CREATININE 0.8 mg/dL (0.4-1.0); TOTAL PROTEIN 7.6 g/dL (6.7-8.2)
[2020-07-24 10:35] LABS: FERRITIN 93.7 ng/mL (11.0-306.8)
[2020-07-24 14:23] LABS: HEMOGLOBIN A1c% 5.8 % (4.27-6.07)
== END 2020-07-24 09:35 | disposition home or self-care (01) ==
LOC: LAB 09:34
PROVIDERS: ATTEND Obstetrics & Gynecology
DX: N76.1 Subacute and chronic vaginitis (principal); B37.2 Candidiasis of skin and nail; Z87.42 Personal history of other diseases of the female genital tract; I10 Essential (primary) hypertension; Z79.899 Other long term (current) drug therapy; D50.9 Iron deficiency anemia, unspecified; E55.9 Vitamin D deficiency, unspecified; E21.0 Primary hyperparathyroidism; E78.2 Mixed hyperlipidemia
CPT/HCPCS: 36415; 80053; 82306; 82728; 83036; 83540; 83970; 84466; 86304

== ENCOUNTER 2020-08-08 16:26 | Outpatient (CLI) | payer MEDICARE | END 2020-08-08 16:27 | disposition home or self-care (01) | LOC: COV 16:26 | PROVIDERS: ATTEND Family Medicine | DX: R05 Cough (principal); R53.83 Other fatigue; R07.0 Pain in throat; J34.89 Other specified disorders of nose and nasal sinuses; Z20.822 Contact with and (suspected) exposure to COVID-19 ==

== ENCOUNTER 2021-04-19 12:17 | Outpatient (CLI) | payer OTHER, MEDICARE | END 2021-04-19 12:18 | disposition critical access hospital (66) | LOC: EMS 12:17 | DX: Z04.1 Encounter for examination and observation following transport accident (principal); M54.2 Cervicalgia; M25.511 Pain in right shoulder | CPT/HCPCS: A0425; A0429 ==

== ENCOUNTER 2021-04-19 12:27 | Emergency (ER) | payer OTHER, MEDICARE ==
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
[2021-04-19] MEDS ORDERED: ACETAMINOPHEN 325 MG TABLET PO STA (13:00)
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
[2021-04-19 14:28] VITALS: BP 175/93
== END 2021-04-19 14:28 | disposition home or self-care (01) ==
LOC: ED 12:27
DX: S16.1XXA Strain of muscle, fascia and tendon at neck level, initial encounter (principal); S20.219A Contusion of unspecified front wall of thorax, initial encounter; V89.2XXA Person injured in unspecified motor-vehicle accident, traffic, initial encounter; W22.10XA Striking against or struck by unspecified automobile airbag, initial encounter; Y93.89 Activity, other specified; Y92.410 Unspecified street and highway as the place of occurrence of the external cause
CPT/HCPCS: 72125; 99282; 99284; A9270

== ENCOUNTER 2021-11-04 09:35 | Outpatient (CLI) | payer MEDICARE ==
[2021-11-04 09:59] LABS: BASOPHILS # (AUTO) 0.1 10^3/uL (0.0-0.1); BASOPHILS % (AUTO) 0.8 %; EOSINOPHILS # (AUTO) 0.1 10^3/uL (0.0-0.7); EOSINOPHILS % (AUTO) 1.9 %; HCT - HEMATOCRIT 46.4 % (37.0-47.0); HGB - HEMOGLOBIN 15.4 g/dL (12.0-16.0); LYMPHOCYTES # (AUTO) 3.2 10^3/uL (1.5-3.5); LYMPHOCYTES % (AUTO) 43.8 %; MEAN CORPUSCULAR HEMOGLOBIN 29.9 pg (27.0-31.0); MEAN CORPUSCULAR HGB CONC 33.2 g/dL (32.0-36.0); MEAN CORPUSCULAR VOLUME 90.1 fL (81.0-99.0); MEAN PLATELET VOLUME 10.3 fL (7.9-10.8); MONOCYTES # (AUTO) 0.6 10^3/uL (0.0-1.0); MONOCYTES % (AUTO) 8.3 %; NEUTROPHILS # (AUTO) 3.3 10^3/uL (1.5-6.6); NEUTROPHILS % (AUTO) 44.9 %; PLT - PLATELET COUNT 240 10^3/uL (130-450); RED BLOOD COUNT 5.15 10^6/uL (4.20-5.40); RED CELL DISTRIBUTION WIDTH 13.8 % (12.0-15.0); WHITE BLOOD COUNT 7.4 x10^3/uL (4.8-10.8)
[2021-11-04 10:33] LABS: T4 (THYROXINE) 6.04 ug/dL (6.09-12.23)
[2021-11-04 10:35] LABS: THYROID STIMULATING HORMONE 1.77 uIU/mL (0.34-5.60)
[2021-11-04 11:22] LABS: CALCIUM 10.9 mg/dL (8.5-10.3); CREATININE 0.8 mg/dL (0.4-1.0); POTASSIUM 4.7 mmol/L (3.5-5.0)
[2021-11-04 13:06] LABS: ALBUMIN 4.3 g/dL (3.2-5.5); ALBUMIN/GLOBULIN RATIO 1.3 (1.0-2.2); BILIRUBIN,TOTAL 0.8 mg/dL (0.2-1.0); TOTAL PROTEIN 7.5 g/dL (6.7-8.2)
== END 2021-11-04 09:36 | disposition home or self-care (01) ==
LOC: LAB 09:35
PROVIDERS: ATTEND Internal Medicine
DX: I10 Essential (primary) hypertension (principal); E66.9 Obesity, unspecified; Z79.899 Other long term (current) drug therapy; E55.9 Vitamin D deficiency, unspecified; D50.9 Iron deficiency anemia, unspecified
CPT/HCPCS: 36415; 80053; 82306; 82607; 83540; 83970; 84436; 84443; 84466; 85025

== ENCOUNTER 2022-01-30 12:33 | Outpatient (CLI) | payer MEDICARE | END 2022-01-30 12:34 | disposition home or self-care (01) | LOC: DI 12:33 | PROVIDERS: ATTEND Internal Medicine | DX: R07.9 Chest pain, unspecified (principal); I51.7 Cardiomegaly | CPT/HCPCS: 93306 ==

== ENCOUNTER 2023-01-01 08:29 | Outpatient (CLI) | payer MEDICARE ==
[2023-01-01 08:50] LABS: BASOPHILS # (AUTO) 0.1 10^3/uL (0.0-0.1); BASOPHILS % (AUTO) 0.8 %; EOSINOPHILS # (AUTO) 0.1 10^3/uL (0.0-0.7); EOSINOPHILS % (AUTO) 0.9 %; HGB - HEMOGLOBIN 16.1 g/dL (12.0-16.0); LYMPHOCYTES # (AUTO) 3.6 10^3/uL (1.5-3.5); MEAN CORPUSCULAR HEMOGLOBIN 29.8 pg (27.0-31.0); MEAN CORPUSCULAR HGB CONC 32.2 g/dL (32.0-36.0); MEAN CORPUSCULAR VOLUME 92.4 fL (81.0-99.0); MEAN PLATELET VOLUME 10.7 fL (7.9-10.8); MONOCYTES # (AUTO) 0.7 10^3/uL (0.0-1.0); MONOCYTES % (AUTO) 8.6 %; NEUTROPHILS # (AUTO) 3.1 10^3/uL (1.5-6.6); NEUTROPHILS % (AUTO) 41.4 %; PLT - PLATELET COUNT 250 10^3/uL (130-450); RED BLOOD COUNT 5.41 10^6/uL (4.20-5.40); RED CELL DISTRIBUTION WIDTH 13.8 % (12.0-15.0); WHITE BLOOD COUNT 7.6 x10^3/uL (4.8-10.8)
[2023-01-01 09:04] LABS: BILIRUBIN,URINE NEGATIVE (NEGATIVE); GLUCOSE, URINE (UA) NEGATIVE (NEGATIVE); KETONES,URINE (UA) NEGATIVE (NEGATIVE); LEUKOCYTE ESTERASE, URINE NEGATIVE (NEGATIVE); NITRITE,URINE NEGATIVE (NEGATIVE); OCCULT BLOOD,URINE NEGATIVE (NEGATIVE); PH,URINE 5.5 PH (5.0-7.5); PROTEIN,URINE NEGATIVE (NEGATIVE); UROBILINOGEN,URINE 0.2 (NORMAL) E.U./dL (NORMAL)
[2023-01-01 09:05] LABS: CLARITY,URINE CLEAR (CLEAR)
[2023-01-01 09:07] LABS: ALBUMIN 4.3 g/dL (3.2-5.5); ALBUMIN/GLOBULIN RATIO 1.2 (1.0-2.2); BILIRUBIN,TOTAL 0.7 mg/dL (0.2-1.0); CALCIUM 10.7 mg/dL (8.5-10.3); CREATININE 0.8 mg/dL (0.4-1.0); TOTAL PROTEIN 7.8 g/dL (6.7-8.2)
[2023-01-01 09:21] LABS: THYROID STIMULATING HORMONE 2.05 uIU/mL (0.34-5.60)
[2023-01-01 09:33] LABS: BACTERIA,URINE Few /HPF (None Seen); RBC,URINE 0-5 /HPF (0-5); SQUAMOUS EPITHELIAL CELL,UR FEW Squamous (<= Few); WBC,URINE 0-3 /HPF (0-5)
== END 2023-01-01 08:30 | disposition home or self-care (01) ==
LOC: LAB 08:29
PROVIDERS: ATTEND Internal Medicine
DX: I10 Essential (primary) hypertension (principal); E78.2 Mixed hyperlipidemia; D50.9 Iron deficiency anemia, unspecified
CPT/HCPCS: 36415; 80053; 81001; 82306; 83735; 83970; 84443; 85025; 87086

== ENCOUNTER 2023-02-06 08:00 | Outpatient (CLI) | payer MEDICARE ==
[2023-02-06 20:13] LABS: BACTERIAL VAGINOSIS DNA NEGATIVE (NEGATIVE); CANDIDA GLABRATA DNA NEGATIVE (NEGATIVE); CANDIDA GROUP DNA NEGATIVE (NEGATIVE); CANDIDA KRUSEI DNA NEGATIVE (NEGATIVE); TRICHOMONAS VAGINALIS DNA NEGATIVE (NEGATIVE)
== END 2023-02-06 23:59 | disposition home or self-care (01) ==
LOC: LAB.WC 08:00
PROVIDERS: ATTEND Obstetrics & Gynecology
DX: N76.1 Subacute and chronic vaginitis (principal)
CPT/HCPCS: 81514

== ENCOUNTER 2023-04-01 14:21 | Emergency (ER) | payer MEDICARE, MEDICAID ==
--- NOTE | 2023-04-01 16:41 | ED Physician Documentation ---
PD HPI LOWER EXT INJURY - Stated complaint Stated Complaint: RT LEG PX - Chief complaint Chief Complaint: Ext Problem - History obtained from History obtained from: Patient - Additional information Additional information: The patient comes to the emergency department chief complaint of left inguinal pain that worsened yesterday. She states she has been having the pain for about a month, but that the last couple of days have been worse. She states that she did not have any distinct injury, though sometime into our conversation she seems to recall that she had a episode of tripping and had to take several hard steps forward in a running fashion to stop her momentum and avoid falling. The patient states that it is after that is that she began to notice the onset of pain. She indicates that the place where she feels it most is in her mid inguinal ligament area, though does radiate to her lateral hip. She has been ambulatory since and states that when she gets up and going, she feels better. The patient denies any numbness or tingling. No pain shooting down her leg. No pelvic pain. No urinary symptoms. No prior injury to the area. No history of DVT. The patient has already seen her primary provider, who is a midlevel, but has not had any imaging at this point in time. She is not sure when her next appointment is. 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 HEENT: Tonsil/Adenoidectomy - Present Medications Home Medications: Ambulatory Orders Medication Instructions Recorded Confirmed Cyclobenzaprine [Flexeril] 10 mg PO TID PRN 04/01/23 04/01/23 Lisinopril [Zestril] 30 mg PO DAILY 04/01/23 04/01/23 Timolol 0.5% Ophth Drops [Timoptic 1 drops OPTH BID 04/01/23 04/01/23 0.5% Ophth Drops] predniSONE [Deltasone] 10 mg PO [id number] #42 tab 04/01/23 - Allergies Allergies/Adverse Reactions: Allergies Allergy/AdvReac Type Severity Reaction Status Date / Time Penicillins Allergy Unknown Verified 04/01/23 14:38 ciprofloxacin [From Cipro] AdvReac Unknown Verified 04/01/23 14:38 - Social History Does the pt smoke?: No Smoking Status: Never smoker Does the pt drink ETOH?: No Does the pt have substance abuse?: No - Immunizations Immunizations are current?: Yes - POLST Patient has POLST: No PD ED PE NORMAL - Vitals Vital signs reviewed: Yes - General General: Alert and oriented X 3, No acute distress, Well developed/nourished - HEENT HEENT: Atraumatic, Moist mucous membranes - Neck Neck: Supple, no meningeal sign - Cardiac Cardiac: Strong equal pulses - Respiratory Respiratory: No respiratory distress - Abdomen Abdomen: Soft, Non tender, Non distended - Derm Derm: Normal color, Warm and dry, No rash - Extremities Extremities: No deformity, No edema, No calf tenderness / cord, Other (Mild tenderness palpation over left inguinal ligament area. No tenderness to palpation of hip or pelvis) - Neuro Neuro: Alert and oriented X 3, No motor deficit, No sensory deficit - Psych Psych: Normal mood, Normal affect Results - Vitals Vitals: Oxygen O2 Source Room air - Rads (name of study) Venous duplex left lower extremity Relevant Findings:: Final report received, See rad report (Negative) PD Medical Decision Making - ED course Complexity details: reviewed results, re-evaluated patient, considered differential, d/w patient ED course: The patient was ambulatory in the emergency department and she did not present with any fall or other major injury that would be expected to resulted in a hip fracture or pelvic fracture. I discussed with her that I suspected she had strained her inguinal area when she tripped and took the running steps, and that this probably aggravated what ever inflammatory process that she already had going on for the last several weeks. I did obtain a venous duplex to evaluate for possible DVT and this was negative. I discussed with the patient that she will need to follow-up with her primary doctor to continue to evaluate this nonemergent problem. We have discussed the usual indications for return. Departure - Departure Disposition: 01 Home, Self Care Clinical Impression: Inguinal strain Qualifiers: Encounter type: initial encounter Laterality: left Qualified Code(s): S76.212A - Strain of adductor muscle, fascia and tendon of left thigh, initial encounter Condition: Stable Instructions: ED Strain Groin Prescriptions: predniSONE [Deltasone] 10 mg PO [id number] #42 tab Comments: Your ultrasound is negative for a clot, cyst, or any other findings of concern. It sounds as though you strained your inguinal area, where there are many ligaments and tendons that attach, and that this has been aggravated again by tripping and running/catching yourself a couple of days ago. Although this is not an emergent injury that qualifies for an emergent MRI today in the ED, it would be worth following up with your primary doctor to discuss whether physical therapy, stretches, and/or MRI might be helpful on a nonemergent basis. In the meantime, you may continue to take Tylenol and ibuprofen as needed. A prescription for steroid taper has been sent to the [email or web address] pharmacy at your request. Please follow-up with your doctor as soon as you are able. Forms: PCP List Discharge Date/Time: 04/01/23 16:49
--- NOTE | 2023-04-01 16:52 | Ultrasound Report ---
PROCEDURE: Duplex Ext Veins Left INDICATIONS: pain/swelling TECHNIQUE: Real-time imaging, as well as color and pulse Doppler interrogation, were performed of the lower extr emity deep veins from the inguinal ligament to the popliteal fossa. Attempted visualization of the ca lf veins was performed. COMPARISON: None. FINDINGS: The deep veins are normally compressible, and free of intraluminal thrombus. Color and pu lse Doppler demonstrate normal phasic intraluminal flow. There is normal augmentation response to di stal compression maneuver. IMPRESSION: No deep venous thrombosis of the visualized lower extremity. Reviewed by: Macario Angelo MD on 04/01/2023 4:51 PM PDT Approved by: Macario Angelo MD on 04/01/2023 4:51 PM PDT Station ID: [id number]
[2023-04-02 10:57] VITALS: BP 140/90; O2SAT 96
== END 2023-04-01 16:49 | disposition home or self-care (01) ==
LOC: ED 14:21
DX: S76.212A Strain of adductor muscle, fascia and tendon of left thigh, initial encounter (principal); W18.40XA Slipping, tripping and stumbling without falling, unspecified, initial encounter; I10 Essential (primary) hypertension
CPT/HCPCS: 85379; 99283; 99284

== ENCOUNTER 2023-05-14 11:06 | Outpatient (CLI) | payer MEDICARE, MEDICAID ==
--- NOTE | 2023-05-14 17:16 | XRAY Report ---
PROCEDURE: Chest 2 View X-Ray INDICATIONS: BRONCHITIS TECHNIQUE: 2 views of the chest were acquired. COMPARISON: CT chest 06/18/2018 FINDINGS: Lungs and pleura: No pleural effusions or pneumothorax. Lungs are clear. Mediastinum: Cardiac silhouette is at the upper limits of normal in size. Bones and chest wall: No suspicious bony lesions. Overlying soft tissues appear unremarkable. IMPRESSION: No acute cardiopulmonary process. Reviewed by: Feroz Goldstein MD on 05/14/2023 5:14 PM PDT Approved by: Feroz Goldstein MD on 05/14/2023 5:14 PM PDT Station ID: [id number]
== END 2023-05-14 11:07 | disposition home or self-care (01) ==
LOC: DI 11:06
PROVIDERS: ATTEND Internal Medicine
DX: J20.9 Acute bronchitis, unspecified (principal)

== ENCOUNTER 2023-06-21 13:37 | Emergency (ER) | payer MEDICARE, MEDICAID ==
[2023-06-21 13:55] VITALS: O2SAT 96
--- NOTE | 2023-06-21 14:08 | ED Physician Documentation ---
PD HPI UPPER EXT INJURY - Stated complaint Stated Complaint: LT SHOULDER/ARM PX - Chief complaint Chief Complaint: Ext Problem - History obtained from History obtained from: Patient - History of Present Illness Location: Left, Shoulder Type of injury: Twist Where injury occurred: Home - Additonal information Additional information: This is a 77-year-old female who presents with left shoulder pain. The pain started about a week ago, she states she went to bed 1 evening did not have it woke up the next morning with the shoulder pain. She denies any known injuries but states she does it repeatedly reach behind her back and adjust her pillows at night and she thinks that at some point during 1 of those events that she may have strained it. Since then it has been sore, she has limited range of motion. No tingling or numbness. She did fall onto the shoulder, denies any neck injuries. She has tried [id number] medications including Aspercreme, Tylenol and ibuprofen without relief in her symptoms. 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 HEENT: Tonsil/Adenoidectomy - Present Medications Home Medications: Ambulatory Orders Medication Instructions Recorded Confirmed Cyclobenzaprine [Flexeril] 10 mg PO TID PRN 04/01/23 04/01/23 Lisinopril [Zestril] 30 mg PO DAILY 04/01/23 04/01/23 Timolol 0.5% Ophth Drops [Timoptic 1 drops OPTH BID 04/01/23 04/01/23 0.5% Ophth Drops] predniSONE [Deltasone] 10 mg PO [id number] #42 tab 04/01/23 Cyclobenzaprine [Flexeril] 10 mg PO TID PRN #20 tablet 06/21/23 - Allergies Allergies/Adverse Reactions: Allergies Allergy/AdvReac Type Severity Reaction Status Date / Time Penicillins Allergy Unknown Verified 06/21/23 13:50 ciprofloxacin [From Cipro] AdvReac Unknown Verified 06/21/23 13:50 - Social History Does the pt smoke?: No Smoking Status: Never smoker Does the pt drink ETOH?: No Does the pt have substance abuse?: No - Immunizations Immunizations are current?: Yes - POLST Patient has POLST: No PD ED PE NORMAL - Vitals Vital signs reviewed: Yes - General General: Alert and oriented X 3, No acute distress, Well developed/nourished - HEENT HEENT: Atraumatic, Moist mucous membranes - Neck Neck: Supple, no meningeal sign, No bony TTP - Derm Derm: Normal color, Warm and dry, No rash - Extremities Extremities: No deformity, Other (Decreased left shoulder range of motion due to pain, positive impingement signs, tenderness to with palpation of the entire shoulder without obvious deformity. 2+ radial pulses and brisk cap refill.) Results - Vitals Vitals: Vital Signs - 24 hr 06/21/23 13:44 Temperature 36.3 C L Heart Rate 82 Respiratory 20 Rate Blood Pressure 177/90 H O2 Saturation 96 Oxygen O2 Source Room air - Rads (name of study) No standard instances Relevant Findings:: Final report received, See rad report PD Medical Decision Making - ED course Complexity details: reviewed results, re-evaluated patient, considered differential, d/w patient ED course: 77-year-old female presented with left shoulder pain for last week as described in HPI. She believes it started after reaching behind her to adjust her pillow sleeping. Pain is reproducible and she has limited range of motion of shoulder due to the pain. No obvious bony injury. We did obtain x-ray which shows moderate arthrosis, no other acute findings. I discussed with patient that she likely has muscle strain, potentially an intra-articular injury and have advised supportive measures, follow-up with PCP in the next week or 2. If no improv ement at that time consider physical therapy or possible MRI and Ortho evaluation I discussed with patient that recovery from these injuries can take several weeks if not longer. Patient to add Tylenol to her ibuprofen to help with pain relief. I did offer her narcotic pain medication however she declined. Recommended ice or heat, light range of motion activity, and I have prescribed Flexeril for the patient which she has used successfully in the past. Departure - Departure Disposition: 01 Home, Self Care Clinical Impression: Left shoulder strain Qualifiers: Encounter type: initial encounter Qualified Code(s): S46.912A - Strain of unspecified muscle, fascia and tendon at shoulder and upper arm level, left arm, initial encounter Condition: Good Instructions: ED Sprain Shoulder Prescriptions: Cyclobenzaprine [Flexeril] 10 mg PO TID PRN #20 tablet PRN Reason: Spasms Comments: Your xray shows mild arthritis but no other signs of dislocation or bony injury. It is still possible that you have muscle or Tendon damage and he may need MRI if no improvement in the next couple of weeks. Typically the initial treatment for an injury such as this is cool compress or moist heat, light range of motion activity, physical therapy, Tylenol and ibuprofen as needed. It does tend to take several weeks if not longer for improvement. It is important that you do not immobilize the shoulder and that you try move the shoulder through range of motion activities at the several times a day to avoid a frozen shoulder. Please follow-up with your primary doctor in the next couple of weeks for follow-up, they may refer you to physical therapy or Ortho as needed. Forms: PCP List
--- NOTE | 2023-06-21 14:29 | XRAY Report ---
PROCEDURE: Shoulder 3 View LT INDICATIONS: pain TECHNIQUE: 3 views of the shoulder were acquired. COMPARISON: None. FINDINGS: Bones: No fractures or dislocations. No suspicious bony lesions. Visualized ribs appear intact. Mild acromioclavicular osteoarthritic change. Soft tissues: No suspicious soft tissue calcifications. The visualized lungs are within normal limi ts. IMPRESSION: No acute bony abnormality. Mild acromioclavicular osteoarthrosis Reviewed by: Wilmer Nair MD on 06/21/2023 1:28 PM [facility] Approved by: Wilmer Nair MD on 06/21/2023 1:28 PM [facility] Station ID: [id number]
[2023-06-21 15:13] VITALS: BP 154/79
== END 2023-06-21 15:09 | disposition home or self-care (01) ==
LOC: ED 13:37
DX: S46.912A Strain of unspecified muscle, fascia and tendon at shoulder and upper arm level, left arm, initial encounter (principal); M19.012 Primary osteoarthritis, left shoulder
CPT/HCPCS: 99283

== ENCOUNTER 2023-08-04 13:57 | Outpatient (CLI) | payer MEDICARE, MEDICAID ==
--- NOTE | 2023-08-05 09:43 | CT Report ---
PROCEDURE: Upper Extremity LT WO INDICATIONS: LEFT SHOULDER PAIN TECHNIQUE: Noncontrast 3 mm axial sections were acquired through the elbow joint, with coronal and sagittal refo rmats. For radiation dose reduction, the following was used: automated exposure control, adjustment of mA and/or kV according to patient size. COMPARISON: Left shoulder radiographs 06/21/2023 FINDINGS: Image quality: Excellent. Bones: No acute osseous fracture or dislocation. Moderate joint space narrowing is seen at the gleno humeral joint with mild subchondral sclerosis and small marginal osteophytes. There are moderate dege nerative changes at the acromioclavicular joint. No suspicious osseous lesion. The included ribs are intact. Soft tissues: Small glenohumeral effusion. The rotator cuff musculature is normal in bulk. The tendo ns, ligaments, articular cartilages, labrum are not well evaluated with standard CT. The iliopsoas mu sculature appears normal. The included left lung is clear. IMPRESSION: 1.Moderate glenohumeral osteoarthrosis. Small glenohumeral effusion. 2.Moderate acromioclavicular joint osteoarthrosis. Reviewed by: Feroz Mujica MD on 08/05/2023 9:42 AM PST Approved by: Feroz Mujica MD on 08/05/2023 9:42 AM PST Station ID: [id number]
== END 2023-08-04 13:58 | disposition home or self-care (01) ==
LOC: DI 13:57
PROVIDERS: ATTEND Internal Medicine
DX: M19.012 Primary osteoarthritis, left shoulder (principal); M25.412 Effusion, left shoulder; M54.32 Sciatica, left side; R10.2 Pelvic and perineal pain; M47.816 Spondylosis without myelopathy or radiculopathy, lumbar region; M51.36 Other intervertebral disc degeneration, lumbar region; M43.17 Spondylolisthesis, lumbosacral region; M16.0 Bilateral primary osteoarthritis of hip; M47.898 Other spondylosis, sacral and sacrococcygeal region; R93.89 Abnormal findings on diagnostic imaging of other specified body structures

== ENCOUNTER 2023-08-04 13:58 | Outpatient (CLI) | payer MEDICARE, MEDICAID ==
--- NOTE | 2023-08-05 09:50 | CT Report ---
PROCEDURE: Pelvis WO INDICATIONS: SCIATICA TECHNIQUE: Noncontrast 3 mm axial sections acquired through the sacrum and the bony pelvis, with coronal and sag ittal reformatting. For radiation dose reduction, the following was used: automated exposure control , adjustment of mA and/or kV according to patient size. COMPARISON: CT abdomen/pelvis 01/27/2020 FINDINGS: Image quality: Excellent. Bones: No acute osseous fracture or dislocation. Mild degenerative changes are seen in the sacroilia c joints bilaterally. Moderate bilateral hip osteoarthrosis, slightly worse on the left. Degenerative changes are seen in the included spine. Soft tissues: No focal soft tissue edema. No presacral edema. No soft tissue mass is seen along the visualized course of the sciatic nerves. The visualized musculature is age-appropriate in bulk. A lar ge left adnexal simple appearing cyst is seen measuring up to 8 cm in maximum dimension, previously m easuring 7.[address] from 01/27/2020. No right adnexal mass is seen. A small coarse calcification is seen in the anterior uterus. Multiple diverticula are seen in the colon without signs of acute divert iculitis. Aortoiliac atherosclerotic calcifications are noted. IMPRESSION: 1.No presacral mass. No significant compression is seen along the course of the sciatic nerves bilate rally. 2.Moderate bilateral hip osteoarthrosis. Mild degenerative changes in the sacroiliac joints. 3.Left adnexal 8 cm cystic lesion, which has mildly increased in size compared to the CT from 01/27/20 20 and cystic neoplasm is not excluded. Reviewed by: Feroz Mujica MD on 08/05/2023 9:49 AM [facility] Approved by: Feroz Mujica MD on 08/05/2023 9:49 AM PST Station ID: [id number]
--- NOTE | 2023-08-05 09:58 | CT Report ---
PROCEDURE: Lumbar Spine WO INDICATIONS: SCIATICA TECHNIQUE: Noncontrast 3 mm thick sections acquired from the T12 level to the sacrum. Sagittal and coronal refo rmats were constructed. For radiation dose reduction, the following was used: automated exposure co ntrol, adjustment of mA and/or kV according to patient size. COMPARISON: CT abdomen/pelvis 01/27/2020 FINDINGS: Image quality: Excellent. Bones: Generalized osteopenia. There is trace rightward curvature of the lumbar spine. 4 mm grade 1 anterolisthesis of L5-S1. No acute vertebral body compression fractures. No suspicious lytic or karen tic bony lesions. Bony central spinal canal is of normal overall caliber. No pars defects. Multiple diverticula are seen in the colon. T12-L1: No significant spinal canal stenosis or neuroforaminal narrowing. L1-L2: No significant spinal canal stenosis or neuroforaminal narrowing. L2-L3: Moderate loss of disc space height and circumferential disc bulging as well as mild bilater al facet hypertrophy, which result in mild narrowing of the bilateral neural foramina without signifi cant spinal canal stenosis. L3-L4: Mild loss of disc space height and circumferential disc bulging as well as mild bilateral fa cet hypertrophy. Findings result in mild narrowing of the bilateral neural foramina without significa nt spinal canal stenosis. L4-L5: Mild circumferential disc bulging and mild to moderate bilateral facet atrophy as well as mi ld buckling of the ligamentum flavum. Findings result in moderate narrowing of the spinal canal and m ild to moderate bilateral neural foraminal narrowing. L5-S1: Grade 1 anterolisthesis with uncovering of the disc space and moderate to severe bilateral f acet hypertrophy. Findings result in mild narrowing of the bilateral neural foramina without signific ant spinal canal stenosis. Soft tissues: No retroperitoneal masses or hematomas. Visualized aorta is normal in caliber. Stable bilateral adrenal adenomas. Status post cholecystectomy. Large cystic lesion is partially imaged in the pelvis, seen in the right hip and left axilla on CT pelvis performed at same time. IMPRESSION: 1.Multilevel degenerative disc disease and facet hypertrophy as described in detail in the body of th e report, overall worst at the L4-5 level. 2.No high-grade spinal canal stenosis or high-grade neuroforaminal narrowing. 3.Mild grade 1 anterolisthesis at L5-S1. 4.Large cystic lesion in the pelvis is partially imaged. Please see the separate report from the CT o f the pelvis performed at same time. Additional incidental findings as described in the body of the r eport. Reviewed by: Feroz Mujica MD on 08/05/2023 9:57 AM PST Approved by: Feroz Mujica MD on 08/05/2023 9:57 AM PST Station ID: [id number]
== END 2023-08-04 13:59 | disposition home or self-care (01) ==
LOC: DI 13:58
PROVIDERS: ATTEND Internal Medicine
DX: M54.32 Sciatica, left side (principal); R10.2 Pelvic and perineal pain; M47.816 Spondylosis without myelopathy or radiculopathy, lumbar region; M51.36 Other intervertebral disc degeneration, lumbar region; M43.17 Spondylolisthesis, lumbosacral region; M16.0 Bilateral primary osteoarthritis of hip; M47.898 Other spondylosis, sacral and sacrococcygeal region; R93.89 Abnormal findings on diagnostic imaging of other specified body structures

== ENCOUNTER 2023-08-24 08:24 | Outpatient (CLI) | payer MEDICARE, MEDICAID ==
[2023-08-24 09:11] LABS: BASOPHILS # (AUTO) 0.1 10^3/uL (0.0-0.1); BASOPHILS % (AUTO) 0.9 %; EOSINOPHILS # (AUTO) 0.1 10^3/uL (0.0-0.7); EOSINOPHILS % (AUTO) 0.8 %; HCT - HEMATOCRIT 47.6 % (37.0-47.0); HGB - HEMOGLOBIN 15.3 g/dL (12.0-16.0); LYMPHOCYTES # (AUTO) 3.2 10^3/uL (1.5-3.5); LYMPHOCYTES % (AUTO) 42.4 %; MEAN CORPUSCULAR HEMOGLOBIN 29.4 pg (27.0-31.0); MEAN CORPUSCULAR HGB CONC 32.1 g/dL (32.0-36.0); MEAN CORPUSCULAR VOLUME 91.5 fL (81.0-99.0); MEAN PLATELET VOLUME 10.2 fL (7.9-10.8); MONOCYTES # (AUTO) 0.5 10^3/uL (0.0-1.0); MONOCYTES % (AUTO) 7.2 %; NEUTROPHILS # (AUTO) 3.6 10^3/uL (1.5-6.6); NEUTROPHILS % (AUTO) 48.4 %; PLT - PLATELET COUNT 247 10^3/uL (130-450); RED CELL DISTRIBUTION WIDTH 13.5 % (12.0-15.0); RETICULOCYTE COUNT % (AUTO) 1.93 % (0.5-2.3); WHITE BLOOD COUNT 7.5 x10^3/uL (4.8-10.8)
[2023-08-24 09:24] LABS: % IRON SATURATION 26 % (20-50); ALBUMIN/GLOBULIN RATIO 1.5 (1.0-2.2); ALKALINE PHOSPHATASE 109 IU/L (42-121); ALT ALANINE AMINOTRANSFERASE 40 IU/L (10-60); AST ASPARTATE AMINOTRANSFERASE 27 IU/L (10-42); BILIRUBIN,TOTAL 0.6 mg/dL (0.2-1.0); BUN - BLOOD UREA NITROGEN 16 mg/dL (6-20); CALCIUM 10.7 mg/dL (8.5-10.3); CARBON DIOXIDE - CO2 23 mmol/L (21-32); CHLORIDE 103 mmol/L (101-111); CHOL/HDL RATIO 4.7 (<4.4); CHOLESTEROL 194 mg/dL; CREATININE 0.6 mg/dL (0.6-1.3); CRP - C-REACTIVE PROTEIN < 0.5 mg/dL (<0.5); GFR - MDRD 97 (>89); GLUCOSE 116 mg/dL (74-104); HDL CHOLESTEROL 41 mg/dL; IRON 82 ug/dL (50-212); LDL CHOLESTEROL,CALCULATED 122 mg/dL; SODIUM 135 mmol/L (135-145); TOTAL IRON BINDING CAPACITY 321 ug/dL (250-450); TOTAL PROTEIN 6.6 g/dL (6.4-8.9); TRANSFERRIN 229 mg/dL (203-362); TRIGLYCERIDES 153 mg/dL (48-352); VLDL CHOLESTEROL 31 mg/dL
[2023-08-24 09:28] LABS: BILIRUBIN,URINE NEGATIVE (NEGATIVE); GLUCOSE, URINE (UA) NEGATIVE (NEGATIVE); KETONES,URINE (UA) NEGATIVE (NEGATIVE); LEUKOCYTE ESTERASE, URINE NEGATIVE (NEGATIVE); NITRITE,URINE NEGATIVE (NEGATIVE); OCCULT BLOOD,URINE NEGATIVE (NEGATIVE); PROTEIN,URINE NEGATIVE (NEGATIVE); UROBILINOGEN,URINE 0.2 (NORMAL) E.U./dL (NORMAL)
[2023-08-24 09:31] LABS: CLARITY,URINE CLEAR (CLEAR)
[2023-08-24 09:39] LABS: THYROID STIMULATING HORMONE 1.48 uIU/mL (0.34-5.60)
[2023-08-24 09:39] LABS: BACTERIA,URINE Rare /HPF (None Seen); RBC,URINE 0-5 /HPF (0-5); SQUAMOUS EPITHELIAL CELL,UR RARE Squamous (<= Few); WBC,URINE 0-3 /HPF (0-5)
[2023-08-24 09:48] LABS: FERRITIN 71.6 ng/mL (11.0-306.8)
[2023-08-24 12:58] LABS: ESTIMATED AVERAGE GLUCOSE 117 mg/dL (70-100); HEMOGLOBIN A1c% 5.7 % (4.27-6.07)
[2023-08-25 07:10] LABS: VITAMIN D 25-HYDROXY 33.3 ng/mL (30.0-100.0)
== END 2023-08-24 08:25 | disposition home or self-care (01) ==
LOC: LAB 08:24
PROVIDERS: ATTEND Internal Medicine
DX: I10 Essential (primary) hypertension (principal); F41.1 Generalized anxiety disorder; E78.2 Mixed hyperlipidemia; E21.0 Primary hyperparathyroidism; D50.9 Iron deficiency anemia, unspecified; E55.9 Vitamin D deficiency, unspecified; R53.83 Other fatigue; M19.012 Primary osteoarthritis, left shoulder; R82.91 Other chromoabnormalities of urine
CPT/HCPCS: 36415; 80053; 80061; 81001; 81599; 82306; 82378; 82607; 82728; 82746; 83036; 83540; 83721; 83970; 84156; 84166; 84255; 84443; 84466; 85025; 85045; 85651; 86140; 86300; 86301; 87086

== ENCOUNTER 2023-10-30 11:28 | Outpatient (CLI) | payer MEDICARE, MEDICAID | END 2023-10-30 11:29 | disposition home or self-care (01) | LOC: LAB 11:28 | PROVIDERS: ATTEND Internal Medicine | DX: E58 Dietary calcium deficiency (principal) | CPT/HCPCS: 36415; 82310 ==

== ENCOUNTER 2023-12-08 15:14 | Outpatient (CLI) | payer MEDICARE, MEDICAID ==
--- NOTE | 2023-12-08 16:50 | Ultrasound Report ---
PROCEDURE: Soft Tissue Head or Neck INDICATIONS: HYPERPARATHYROIDISM TECHNIQUE: Real-time scanning was performed of the thyroid gland, with image documentation. COMPARISON: Thyroid ultrasound 05/19/2018, 12/15/2014 FINDINGS: Right: Thyroid lobe measures 5.1 x 1.7 x 2.0 cm. Left: Thyroid lobe measures 5.7 x 1.8 x 2.0 cm Isthmus: 4 cm thick. Echotexture: Homogeneous. Nodule number: One Location: Right thyroid Size: 0.9 x 0.6 x 0.8 cm compared to 0.6 x 0.6 x 1.0 cm. Composition: Solid. Echogenicity: Hypoechoic. Shape: wider than tall (0 points). Margins: Smooth (0 points). Echogenic foci: None (0 points). Total points: 4 ACR TI-RADS category: 4 Nodule number: Two Location: Inferior right thyroid Size: 1.9 x 1.4 x 1.4 cm compared to 1.2 x 1.5 x 2.3 cm. Composition: Solid. Echogenicity: Hypoechoic. Shape: wider than tall (0 points). Margins: Smooth (0 points). Echogenic foci: None (0 points). Total points: 4 ACR TI-RADS category: 4 Nodule number: Three Location: Left thyroid Size: 1.1 x 0.7 x 0.8 cm compared to 0.6 x 0.4 x 0.7 cm. Composition: Solid. Echogenicity: Hypoechoic. Shape: wider than tall (0 points). Margins: Smooth (0 points). Echogenic foci: None (0 points). Total points: 4 ACR TI-RADS category: 4 Nodule number: Four Location: [Left Thyroid Size: 0.9 x 0.4 x 0.8 cm compared to 0.3 x 0.4 x 0.4 cm. Composition: Solid. Echogenicity: Hypoechoic. Shape: wider than tall (0 points). Margins: Smooth (0 points). Echogenic foci: None (0 points). Total points: 4 ACR TI-RADS category: 4 IMPRESSION: Lesions 1, 3 and 4 are thyroid foci demonstrating small interval increase is in size sin ce 2018. Recommend interval follow-up in 1 year for lesions 1, 3 and 4. Lesion 2 raises suspicion for a potential parathyroid adenoma. Recommend correlation to patient's sym ptoms and as clinically indicated, nuclear medicine thyroid scan and/or CT with thyroid protocol is r ecommended. ACR TI-RADS definitions and recommendations: TI-RADS 1 (benign): 0 points. FNA not needed. TI-RADS 2 (not suspicious): 2 points. FNA not needed. TI-RADS 3 (mildly suspicious): 3 points. "FNA if 2.5 cm or larger, follow up if 1.5 cm or larger (at 1, 3, and 5 years). TI-RADS 4 (moderately suspicious): 4-6 points. "FNA if 1.5 cm or larger, follow up if 1 cm or larger (at 1, 2, 3, and 5 years). TI-RADS 5 (highly suspicious): 7 points or more. "FNA if 1 cm or larger, follow up if 0.5 cm or larger (every year for 5 years). Reviewed by: Yahaira Rubio MD on 12/08/2023 4:49 PM PDT Approved by: Yahaira Rubio MD on 12/08/2023 4:49 PM PDT Station ID: [id number]
== END 2023-12-08 15:15 | disposition home or self-care (01) ==
LOC: DI 15:14
PROVIDERS: ATTEND Surgery
DX: E04.2 Nontoxic multinodular goiter (principal); E21.0 Primary hyperparathyroidism

== ENCOUNTER 2023-12-23 15:09 | Emergency (ER) | payer MEDICARE, MEDICAID ==
[2023-12-23 15:37] VITALS: BP 149/93; O2SAT 96
[2023-12-23 15:44] LABS: BILIRUBIN,URINE NEGATIVE (NEGATIVE); GLUCOSE, URINE (UA) NEGATIVE (NEGATIVE); KETONES,URINE (UA) NEGATIVE (NEGATIVE); LEUKOCYTE ESTERASE, URINE NEGATIVE (NEGATIVE); NITRITE,URINE NEGATIVE (NEGATIVE); OCCULT BLOOD,URINE NEGATIVE (NEGATIVE); PROTEIN,URINE NEGATIVE (NEGATIVE); UROBILINOGEN,URINE 0.2 (NORMAL) E.U./dL (NORMAL)
[2023-12-23 15:46] LABS: CLARITY,URINE CLEAR (CLEAR)
--- NOTE | 2023-12-23 16:33 | ED Physician Documentation ---
History of Present Illness - Stated complaint Stated Complaint: LOWER ABD PX, - Chief complaint Chief Complaint: UTI - Additonal information Additional information: 78-year-old female with history of ovarian cyst, ulcers, colon polyps, hype rtension, osteoarthritis presents emergency department for urinary urgency and frequency. Patient says that she has been feeling more gassy than normal did not have a bowel movement today which is not entirely normal for her but no nausea vomiting fevers or chills. Her main concern is that she is having increase urinary urgency with pelvic floor fullness. 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 HEENT: Tonsil/Adenoidectomy - Present Medications Home Medications: Ambulatory Orders Medication Instructions Recorded Confirmed Lisinopril [Zestril] 30 mg PO DAILY 04/01/23 12/22/23 Celecoxib [CeleBREX] 200 mg PO DAILY 12/22/23 12/22/23 Gabapentin [Neurontin] 400 mg PO DAILY 12/22/23 12/22/23 LORazepam [Ativan] 0.5 mg PO HS 12/22/23 12/22/23 - Allergies Allergies/Adverse Reactions: Allergies Allergy/AdvReac Type Severity Reaction Status Date / Time Penicillins Allergy Unknown Verified 12/23/23 15:27 ciprofloxacin [From Cipro] AdvReac Unknown Verified 12/23/23 15:27 - Social History Does the pt smoke?: No Smoking Status: Never smoker Does the pt drink ETOH?: No Does the pt have substance abuse?: No - Immunizations Immunizations are current?: Yes - POLST Patient has POLST: No PD ED PE NORMAL - Vitals Vital signs reviewed: Yes - General General: Alert and oriented X 3, No acute distress, Well developed/nourished - Abdomen Abdomen: Normal bowel sounds, Soft, Non distended, No organomegaly, Other (mild tenderness with pelvic area) - Back Back: No CVA TTP - Derm Derm: Normal color, Warm and dry, No rash - Psych Psych: Normal mood, Normal affect Results - Vitals Vitals: Vital Signs - 24 hr 12/23/23 12/23/23 12/23/23 15:23 15:27 18:25 Temperature 36.7 C Heart Rate 82 Respiratory 18 17 20 Rate Blood Pressure 149/93 H O2 Saturation 96 Oxygen O2 Source Room air - Labs Labs: Laboratory Tests 12/23/23 12/23/23 12/23/23 15:39 16:51 16:51 WBC 12.7 H RBC 5.15 Hgb 15.1 Hct 47.0 MCV 91.3 MCH 29.3 MCHC 32.1 RDW 14.2 Plt Count 237 MPV 10.4 Neut # (Auto) 8.6 H Lymph # (Auto) 2.8 Nicol[place] # (Auto) 1.2 H Eos # (Auto) 0.0 Baso # (Auto) 0.1 Absolute Nucleated RBC 0.00 Nucleated RBC % 0.0 Sodium 136 Potassium 3.9 Chloride 104 Carbon Dioxide 26 Anion Gap 6.0 BUN 13 Creatinine 0.7 Estimated GFR (MDRD) 81 L Glucose 114 H Calcium 11.3 H Magnesium 1.7 Total Bilirubin 0.5 AST 24 ALT 36 Alkaline Phosphatase 110 Total Protein 6.9 Albumin 4.1 Globulin 2.8 Albumin/Globulin Ratio 1.5 Lipase 106 H Urine Color YELLOW Urine Clarity CLEAR Urine pH 6.0 Ur Specific Kinsey <=1.005 Urine Protein NEGATIVE Urine Glucose (UA) NEGATIVE Urine Ketones NEGATIVE Urine Occult Blood NEGATIVE Urine Nitrite NEGATIVE Urine Bilirubin NEGATIVE Urine Urobilinogen 0.2 (NORMAL) Ur Leukocyte Esterase NEGATIVE Ur Microscopic Review NOT INDICATED Urine Culture Comments NOT INDICATED - Rads (name of study) Pelvic ultrasound Relevant Findings:: Final report received, EMP independent interpretation of test, Other (Left ovarian cysts about 7 x 8 cm appears to be simple cyst.) PD Medical Decision Making - ED course ED course: 78-year-old female presents emergency department for pelvic pain and urinary urgency. She denies any dysuria or CVA tenderness. Differentials included but are not limited to ovarian torsion, urinary tract infection, pyelonephritis. Labs have been completed during ER visit she does have mild leukocytosis, WBC 12.7 no electrolyte abnormalities calcium slightly elevated at 11.3 but patient says that she is planning on having surgery on her parathyroid. Lipase also slightly elevated at 106 but patient reports that she has history of cholecystectomy and denies any right upper quadrant pain or tenderness. Urinalysis has absolutely no leukocytes or nitrites making me less concern for possible urinary tract infection as well as making me less concerned for possible pyelonephritis. Pelvic ultrasound has been completed for further evaluationPatient has a known left ovarian cyst that patient reports previously was 10 cm that has now decreased to 7 cm. I am not entirely certain what is causing patient's pelvic pain unfortunately patient declined the transvaginal ultrasound for further evaluation. Offered to do a CT abdomen pelvis for further evaluation but patient said that she is hungry and just would like to go home. She does not have any peritonitis no rebound tenderness she was given Tylenol here in the ER to help with her pelvic floor discomfort patient says that she is worried about constipation I have little concern for this being related to a small bowel obstruction as patient has no nausea or vomiting and overall appears to be quite well. She was given 1 dose of MiraLAX here in the ER for concerns of constipation. At this point in time I do believe patient is safe for discharge she is told if she changes her mind and would like to pursue CT to come back to ER for further evaluation but to follow-up with her primary care provider for further evaluation and workup. All questions have been answered patient is safe for discharge at this time. Departure - Departure Disposition: 01 Home, Self Care Clinical Impression: Pelvic pain in female, Urinary urgency Instructions: ED Pelvic Pain [facility] Comments: Thank you for trusting us with your care. As we discussed your white count is slightly elevated at 12.7 and your lipase is also slightly elevated 106. Given not you are not having any right upper quadrant pain at this point in time I do not believe that we need to further investigate why your lipase is elevated especially if you have already had a cholecystectomy. Your urinalysis is also normal and not indicative of any signs of infection. At this point in time I am not entirely sure what is causing this pelvic pain and discomfort. Your ultrasound confirmed that you do have a 7 cm ovarian cyst but it does not appear to be torsed at this point in time. Please help with your primary care provider outpatient for further evaluation of this and come back into the emergency department for having any worsening symptoms such as fevers or chills, worsening pelvic pain, or any other concerning symptoms. You can take Tylenol as needed for pain and discomfort 1000 mg every 8 hours and apply heat to your lower pelvic cavity. Forms: PCP List Discharge Date/Time: 12/23/23 21:27
[2023-12-23 16:55] LABS: BASOPHILS # (AUTO) 0.1 10^3/uL (0.0-0.1); BASOPHILS % (AUTO) 0.5 %; EOSINOPHILS % (AUTO) 0.2 %; HGB - HEMOGLOBIN 15.1 g/dL (12.0-16.0); LYMPHOCYTES # (AUTO) 2.8 10^3/uL (1.5-3.5); LYMPHOCYTES % (AUTO) 22.4 %; MEAN CORPUSCULAR HEMOGLOBIN 29.3 pg (27.0-31.0); MEAN CORPUSCULAR HGB CONC 32.1 g/dL (32.0-36.0); MEAN CORPUSCULAR VOLUME 91.3 fL (81.0-99.0); MEAN PLATELET VOLUME 10.4 fL (7.9-10.8); MONOCYTES # (AUTO) 1.2 10^3/uL (0.0-1.0); MONOCYTES % (AUTO) 9.3 %; NEUTROPHILS # (AUTO) 8.6 10^3/uL (1.5-6.6); NEUTROPHILS % (AUTO) 67.4 %; PLT - PLATELET COUNT 237 10^3/uL (130-450); RED BLOOD COUNT 5.15 10^6/uL (4.20-5.40); RED CELL DISTRIBUTION WIDTH 14.2 % (12.0-15.0); WHITE BLOOD COUNT 12.7 x10^3/uL (4.8-10.8)
[2023-12-23 17:08] LABS: MAGNESIUM 1.7 mg/dL (1.7-2.3)
[2023-12-23 17:14] LABS: ALBUMIN 4.1 g/dL (3.2-5.5); ALBUMIN/GLOBULIN RATIO 1.5 (1.0-2.2); BILIRUBIN,TOTAL 0.5 mg/dL (0.2-1.0); CALCIUM 11.3 mg/dL (8.5-10.3); CREATININE 0.7 mg/dL (0.6-1.3); POTASSIUM 3.9 mmol/L (3.5-4.5); TOTAL PROTEIN 6.9 g/dL (6.4-8.9)
[2023-12-23] MEDS: ACETAMINOPHEN 325 MG TABLET PO STA (18:22)
[2023-12-23] MEDS: polyethylene glycoL 3350 17 GM PACKET PO STA (21:24)
--- NOTE | 2023-12-23 22:42 | Ultrasound Report ---
PROCEDURE: Pelvic Complete INDICATIONS: urinary urgency, pelvic pain, normal UA TECHNIQUE: Real-time transabdominal scanning was performed of the pelvic organs, with image documentation. Mini ent declined endovaginal imaging COMPARISON: CT pelvis 08/04/2023, 01/29/2020 FINDINGS: Uterus: Uterus is vertically oriented and normal in size at 9.1 x 3.1 x 4.5 cm. The myometrium is h omogeneous. The endometrium measures 4 mm in combined thickness. No visible myometrial mass. Ovaries: The right ovary measures 3.1 x 2.5 x 3.3 cm, with a calculated ovarian volume of 13.7 cc. The left ovary measures 7.2 x 8.1 x 7.2 cm, with a calculated ovarian volume of 219 cc. There is a si mple appearing 7.5 cm cyst within the left ovary. There is appropriate peripheral vascularity and pam rounding ovarian tissue. Other: No free pelvic fluid. IMPRESSION: Simple appearing left adnexal cyst, abnormal for a postmenopausal female, stable compared to the prio r exam, mildly increased in size compared to 01/21/2020. Cystic neoplasm is not excluded. Stable appearance of slightly prominent right ovary for patient's age. Reviewed by: Elizabeth Cortez MD on 12/23/2023 10:41 PM PDT Approved by: Elizabeth Cortez MD on 12/23/2023 10:41 PM PDT Station ID: [id number]
== END 2023-12-23 21:27 | disposition home or self-care (01) ==
LOC: ED 15:09
DX: R39.15 Urgency of urination (principal); R10.2 Pelvic and perineal pain; N83.292 Other ovarian cyst, left side
CPT/HCPCS: 36415; 76856; 80053; 81003; 83690; 83735; 85025; 99284; A9270; 81001; 87086

== ENCOUNTER 2023-12-31 11:35 | Outpatient (CLI) | payer MEDICARE, MEDICAID ==
[2023-12-31 12:09] LABS: CREATININE 0.8 mg/dL (0.6-1.3)
[2023-12-31] MEDS: iohexoL-300 100 ML VIAL IVP ONE (14:04)
--- NOTE | 2023-12-31 20:28 | CT Report ---
PROCEDURE: Soft Tissue Neck W INDICATIONS: HYPERPARATHYROIDISM CONTRAST: Omni 300 100ml TECHNIQUE: After the administration of intravenous contrast, 3.0 mm axial sections acquired from the sella to th e aortic arch. Additional oblique axial 3.0 mm sections acquired through the pharynx. 3 mm thick co sierra reformats were generated. For radiation dose reduction, the following was used: automated exp osure control, adjustment of mA and/or kV according to patient size. COMPARISON: Thyroid ultrasound 12/08/2023. FINDINGS: Image quality: Excellent. Lymph nodes: No enlarged lymph nodes seen throughout the neck. Vessels: Visualized vasculature appears patent. Neck spaces: The oropharynx, nasopharynx, and pharynx demonstrate no mucosal lesions. The vocal cor ds, false vocal cords, pyriform sinuses, epiglottis, vallecula, and tongue base all appear normal. E xtramucosal spaces appear unremarkable. Glands: The parotid and submandibular glands appear normal. The thyroid is normal in size. There is a 1.2 x 1.3 cm enhancing mass inferior to the right thyroid lobe posterior and right lateral to the trachea. It demonstrates avid contrast enhancement. This corresponds to area of concern on ultrasound exam of 12/08/2023. Miscellaneous: Visualized brain and orbits appear normal. Lung apices appear clear. Superficial so ft tissues appear normal. Bones: No suspicious bony lesions. Visualized sinuses and mastoids appear unremarkable. IMPRESSION: Enhancing mass inferior to the right thyroid lobe highly suspicious for parathyroid adenoma. CLINICAL RECOMMENDATION STATEMENTS: In patients <35 years with an ITN detected on CT, MRI, or extrathyroidal ultrasound, the Committee re commends further evaluation with dedicated thyroid ultrasound if the nodule is "e1 cm and has no susp icious imaging features, and if the patient has normal life expectancy. In patients "e35 years with an ITN detected on CT, MRI, or extrathyroidal ultrasound, the Committee r ecommends further evaluation with dedicated thyroid ultrasound if the nodule is "e1.5 cm and has no s uspicious imaging features, and if the patient has normal life expectancy. (ACR, 2014) Reviewed by: Yahaira Rubio MD on 12/31/2023 8:26 PM PDT Approved by: Yahaira Rubio MD on 12/31/2023 8:26 PM PDT Station ID: [id number]
== END 2023-12-31 11:36 | disposition home or self-care (01) ==
LOC: LAB 11:35
PROVIDERS: ATTEND Surgery
DX: E21.3 Hyperparathyroidism, unspecified (principal); R22.1 Localized swelling, mass and lump, neck
CPT/HCPCS: 36415; 70491; 82565; Q9967

== ENCOUNTER 2024-01-05 09:26 | Day surgery (SDC) | payer MEDICARE, MEDICAID ==
[~2024-01-05 09:26] MED LIST: ceFAZolin 2 GM VIAL ONE
[2024-01-05] MEDS: LACTATED RINGERS 1,000 ML IV ONE ×2 (09:30→12:47)
[2024-01-05] MEDS ORDERED: LIDOCAINE-PF 2% 10 ML AMP SUBQ ONE (09:57)
[2024-01-05] MEDS ORDERED: PROPOFOL 200 MG/20 ML VIAL IVP ONE (09:57)
[2024-01-05] MEDS ORDERED: MIDAZOLAM 2 MG/2 ML VIAL ONE (09:58)
[2024-01-05] MEDS ORDERED: fentaNYL 100 MCG/2 ML VIAL ONE ×2 (09:58→13:22)
[2024-01-05] MEDS ORDERED: ROCURONIUM 50 MG/5 ML VIAL ONE (10:01)
[2024-01-05] MEDS ORDERED: BUPIVACAINE 0.5%-EPI 1:200000 PF 30 ML VIAL ONE (10:01)
[2024-01-05] MEDS ORDERED: BUPIVACAINE 0.5% PF 10 ML VIAL ONE (10:01)
[2024-01-05] MEDS ORDERED: SEVOFLURANE 250 ML LIQUID INH ONE (10:14)
[2024-01-05] MEDS ORDERED: ONDANSETRON 4 MG/2 ML VIAL IVP PRN (10:20)
[2024-01-05] MEDS ORDERED: NALOXONE 0.4 MG/ML VIAL IVP PRN (10:20)
[2024-01-05] MEDS ORDERED: ATROPINE ABBOJECT 1 MG/10 ML SYRINGE IVP PRN (10:20)
[2024-01-05] MEDS ORDERED: MORPHINE 2 MG/ML CARPUJECT IVP PRN (10:20)
--- NOTE | 2024-01-05 10:23 | ANESTHESIA ---
Pre-Anesthesia VS, & Labs - Diagnosis hypercalcemina, hyperparathyroid - Procedure parathyroidectomy Vital Signs: Temp Pulse Resp BP Pulse Ox O2 Flow Rate 36.3 C L 83 16 190/107 H 97 0 01/05/24 09:55 01/05/24 09:55 01/05/24 09:55 01/05/24 09:55 01/05/24 09:55 01/05/24 09:55 Height: 5 ft 4 in Weight (kg): 98 kg Body Mass Index: 37.0 BMI Classification: Obese - NPO >8 hours - Is Patient ?: No - Lab Results Lab results reviewed: Yes Home Medications and Allergies Home Medications: Ambulatory Orders Celecoxib [CeleBREX] 200 mg PO DAILY 12/22/23 Gabapentin [Neurontin] 400 mg PO DAILY 12/22/23 LORazepam [Ativan] 0.5 mg PO HS 12/22/23 Active Medications Labetalol HCl (Labetalol 20 Mg/4 Ml Syringe) 10 mg IVP PRN PRN PRN Reason: Blood Pressure Lisinopril [Zestril] 30 mg PO DAILY 04/01/23 Celecoxib [CeleBREX] 200 mg PO DAILY 12/22/23 Gabapentin [Neurontin] 400 mg PO DAILY 12/22/23 LORazepam [Ativan] 0.5 mg PO HS 12/22/23 Allergies/Adverse Reactions: Allergies Allergy/AdvReac Type Severity Reaction Status Date / Time Penicillins Allergy Unknown Verified 12/24/23 10:31 ciprofloxacin [From Cipro] AdvReac Unknown Verified 12/24/23 10:31 Anes History & Medical History - Anesthetic History Anesthesia Complications: reports: No previous complications - Medical History Cardiovascular: reports: Hypertension Pulmonary: reports: None, Other (snores) Gastrointestinal: reports: Ulcers, Colon polyps Urinary: reports: None Neuro: reports: None Musculoskeletal: reports: None, Osteoarthritis Endocrine/Autoimmune: reports: Other (hyperparathyroid) Blood Disorders: reports: None Skin: reports: None Smoking Status: Never smoker Psychosocial: reports: No issues indicated History of Cancer?: No - Surgical History General: reports: Cholecystectomy, Colonoscopy, Other Eyes Ears Nose Throat (EENT): reports: Tonsil/Adenoidectomy Gynecologic: reports: Other Exam General: Alert, Oriented x3, Cooperative, No acute distress Dental: Poor dentition Mouth Openin Fingerbreadth Neck Mobility: Reduced Mallampati classification: IV Thyromental Distance: less than 4 cm Mental/Cognitive Status: Alert/Oriented X3, Normal for patient Plan Anesthesia Type: General Consent for Procedure(s) Verified and Reviewed: Yes Code Status: Attempt Resuscitation ASA classification: 3-Severe systemic disease Is this case an emergency?: No
[2024-01-05] MEDS ORDERED: LABETALOL 20 MG/4 ML SYRINGE IVP ONE (10:28)
[2024-01-05] MEDS: LABETALOL 20 MG/4 ML SYRINGE IVP PRN (10:37)
[2024-01-05] MEDS ORDERED: LACTATED RINGERS 1,000 ML IV SCH (11:00)
[2024-01-05] MEDS ORDERED: PHENYLEPHRINE HCL 0.5 MG/5 ML AMPULE ONE (11:00)
[2024-01-05] MEDS ORDERED: ePHEDrine 50 MG/ML VIAL IVP ONE (11:08)
[2024-01-05] MEDS: BUPIVACAINE 0.5%-EPI 1:200000 PF 30 ML VIAL SUBQ ONE ×2 (11:09)
[2024-01-05] MEDS ORDERED: DEXAMETHASONE 4 MG/ML VIAL ONE (12:28)
[2024-01-05] MEDS ORDERED: SUGAMMADEX 200 MG/2 ML VIAL IVP ONE (12:29)
[2024-01-05] MEDS ORDERED: HYDROcod/ACETAM 5/325 MG TABLET PO PRN (12:44)
[2024-01-05] MEDS: LACTATED RINGERS 1,000 ML IV SCH (13:00)
--- NOTE | 2024-01-05 13:05 | ANESTHESIA POST OP EVALUATION ---
Anesthesia Post Eval - Post Anesthesia Eval Vitals: Last Vital Signs Temp 36 C L 01/05/24 12:50 Pulse 79 01/05/24 13:00 Resp 17 01/05/24 13:00 BP 160/99 H 01/05/24 13:00 Pulse Ox 99 01/05/24 13:00 O2 Flow Rate 0 01/05/24 09:55 CV Function Including HR & BP: Stable Pain Control: Satisfactory Nausea & Vomiting: Negative Mental Status: Baseline Respiratory Status: Airway Patent Hydration Status: Satisfactory Anesthesia Complications: None
[2024-01-05] MEDS: HYDROmorphone 0.5 MG/0.5 ML SYRINGE IVP PRN ×2 (13:10→16:58)
--- NOTE | 2024-01-05 13:14 | OPERATIVE REPORT ---
Operative Report - General Procedure Date: 01/05/24 Planned Procedure: RIGHT lower parathyroidectomy Pre-Op Diagnosis: Primary hyperparathyroidism Procedure Performed: RIGHT lower parathyroidectomy Post Op Diagnosis: Primary hyperparathyroidism (frozen section confirmed parathyroid tissue an - Procedure Note Primary Surgeon: Girish Iverson MD Anesthesia Provider: James Lofton CRNA Anesthesia Technique: General ET tube, Local (10 mL of half percent Marcaine with epinephrine) IV Fluids (mL): 1,300 Estimated Blood Loss (mL): 10 Drain/Tube Type: Other (None.) Indications: Symptomatic primary hyperparathyroidism Findings: Very large very friable parathyroid in the right lower position against the trachea Complications: None - Other Other Information/Narrative: After verbal and written informed consent was obtained detailing the operation, the alternatives to the operation including no operation, risks of infection, bleeding requiring transfusion with its risks, nerve injury, and and after I met with the patient confirming the surgery, the patient was brought to the operative suite and placed supine on the operating table. Great care was taken to avoid pressure points to prevent pressure necrosis or nerve injury. Monitoring devices were applied along with TEDs and pneumatic compressive stockings (to prevent DVT). The patient received preoperative antibiotics for surgical prophylaxis. James Lofton CRNA sedated and anesthetized the patient for the entire procedure. The patient was prepped and draped in usual sterile manner. A "time in" then confirmed that the patient was identified with 3 identifiers (name, date, and medical record number), the history and physical was in the chart, the signed consent confirming the procedure was in the chart, the patient was in the correct position, the aforementioned prophylactic measures were in place were given, we had the correct personnel and equipment to complete the procedure and that anesthesia, and the surgical team was given an opportunity to express any concerns. With the agreement of everyone in the room, we proceeded with the operation. After injecting the proposed incision with 5 mL of quarter percent Marcaine, a curvilinear incision was made in the patient's neck corresponding with a normal crease approximately 2 cm superior to the clavicular head. This incision was taken down to the platysma muscle. The platysma was incised using Bovie electrocautery. Superior and inferior flaps were then raised using finger dissection. Small superficial veins were controlled using Bovie electrocautery. The fascia of the sternohyoid muscle was grasped bilaterally and opened at the midline using Bovie electrocautery. The dissection continued past the sternal thyroid muscle onto the thyroid. Once the thyroid was clearly seen Spring retractors, and [employer]'s retractors were used to keep the muscle clear from the area of dissection without incising the muscle. The anterior surface of the thyroid was cleared of adhesions using blunt dissection. This was taken laterally until the thyroid itself could be reflected up. The thyroid was reflected up and the middle thyroidal vein did not need to be sacrificed. Dissection posterior to the thyroid found the large parathyroid gland to be located exactly where it had been seen on localizing studies (sestamibi study as well as parathyroid CT protocol). The surrounding tissues were dissected free from the parathyroid tissue and the clearly enlarged gland was removed with Bovie electrocautery applied to the feeding vessels. The area was then packed and the parathyroid gland was sent to pathology for frozen section evaluation. The pathologist called (Dr. Girish Molina - thank you) and stated that the tissue submitted was hypercellular parathyroid tissue weighing 2610 mg (normal parathyroid weight is generally considered 20 to 40 mg and even 60 mg can be normal). With the object of this operation removed, the wound was examined for hemostasis and there was excellent hemostasis. No drain was required. The fascia of the sternohyoid muscle was then approximated using a 3-0 Vicryl suture in an interrupted fashion. The platysma was approximated using a 3-0 Vicryl suture in an interrupted simple fashion. Five 5-0 nylon sutures were used to approximate the skin in a mattress fashion. The skin was prepped with Mastisol and Steri- Strips were placed between the sutures. The plan would be to remove the sutures tomorrow morning prior to discharge. The patient will be watched overnight for hypocalcemia. At this point a "timeout" was performed that confirmed that all counts were correct, the procedure that was performed, the blood loss, the IV fluids administered, the patient's condition and any concerns of the operating team had. Dressings were then applied. Having tolerated the procedure well, the patient was extubated and taken to recovery room in good and stable condition. The plan is for extended recovery to ensure that the patient does not have significant hypocalcemia. CPT 21101 This document was created in part using voice recognition technology. Because of the inherent limitations of the system, occasional same sounding word substitutions and grammatical errors do occur and persist despite proofreading. Please read this document for context.
[2024-01-05] MEDS: fentaNYL 100 MCG/2 ML VIAL IVP PRN (13:20)
[2024-01-05] MEDS ORDERED: ONDANSETRON 4 MG/2 ML VIAL ONE (13:27)
[2024-01-05] MEDS: ONDANSETRON 4 MG/2 ML VIAL ONE (13:30)
[2024-01-05] MEDS: CHOLECALCIFEROL 400 UNIT TABLET PO SCH (14:33)
[2024-01-05] MEDS: CALCIUM CARBONATE CHEW 500 MG TABLET PO SCH (14:34)
[2024-01-05] MEDS: PROCHLORPERAZINE 10 MG/2 ML VIAL IVP PRN (22:45)
[2024-01-06 06:23] LABS: ALBUMIN/GLOBULIN RATIO 1.4 (1.0-2.2); BILIRUBIN,TOTAL 0.6 mg/dL (0.2-1.0); CALCIUM 10.7 mg/dL (8.5-10.3); CREATININE 0.8 mg/dL (0.6-1.3); POTASSIUM 3.9 mmol/L (3.5-4.5); TOTAL PROTEIN 6.8 g/dL (6.4-8.9)
--- NOTE | 2024-01-06 09:26 | PROVIDER PROGRESS NOTE ---
Subjective - General Procedure Date: 01/05/24 Post Op Days: 1 Procedure Performed: RIGHT lower parathyroidectomy - Review of Systems Wound/Incisions: positive: Healing well, Other (Sutures removed - Dermabond placed) General: positive: No symptoms HEENT: positive: No symptoms Pulmonary: positive: No symptoms Cardiovascular: positive: No symptoms Gastrointestinal: positive: No symptoms Genitourinary: positive: No symptoms Musculoskeletal: positive: No symptoms Skin: positive: No symptoms Psychiatric: positive: No symptoms - Other Other Information/Narrative: Did not sleep well last night. Objective - Patient Data Reviewed Vital Signs: Yes Vital Signs: Vital Signs x48h Temp Pulse Resp BP Pulse Ox 01/06/24 08:30 36.7 C 86 20 134/94 H 94 01/06/24 05:30 36.7 C 86 18 182/99 H 92 Weight: Weight 01/04/24 01/05/24 01/06/24 23:59 23:59 23:59 Weight (kg) 98 kg Intake & Output: Intake and Output Totals x24h 01/04/24 01/05/24 01/06/24 23:59 23:59 23:59 Intake Total 1188.333 Output Total 10 Balance 1178.333 - Lab Results Lab Results: 01/06/24 05:17 Other Lab Results: Lab Results x24hrs 01/06/24 01/06/24 01/05/24 Range/Units 05:17 01:12 19:06 Sodium 136 (135-145) mmol/L Potassium 3.9 (3.5-4.5) mmol/L Chloride 103 (101-111) mmol/L Carbon Dioxide 27 (21-32) mmol/L Anion Gap 6.0 (6-13) BUN 12 (6-20) mg/dL Creatinine 0.8 (0.6-1.3) mg/dL Estimated GFR (MDRD) 69 L (>89) Glucose 129 H (74-104) mg/dL Calcium 10.7 H 10.1 10.4 H (8.5-10.3) mg/dL Total Bilirubin 0.6 (0.2-1.0) mg/dL AST 29 (10-42) IU/L ALT 40 (10-60) IU/L Alkaline Phosphatase 94 (42-121) IU/L Total Protein 6.8 (6.4-8.9) g/dL Albumin 4.0 (3.2-5.5) g/dL Globulin 2.8 (2.1-4.2) g/dL Albumin/Globulin Ratio 1.4 (1.0-2.2) 01/05/24 Range/Units 13:18 Sodium (135-145) mmol/L Potassium (3.5-4.5) mmol/L Chloride (101-111) mmol/L Carbon Dioxide (21-32) mmol/L Anion Gap (6-13) BUN (6-20) mg/dL Creatinine (0.6-1.3) mg/dL Estimated GFR (MDRD) (>89) Glucose (74-104) mg/dL Calcium 10.5 H (8.5-10.3) mg/dL Total Bilirubin (0.2-1.0) mg/dL AST (10-42) IU/L ALT (10-60) IU/L Alkaline Phosphatase (42-121) IU/L Total Protein (6.4-8.9) g/dL Albumin (3.2-5.5) g/dL Globulin (2.1-4.2) g/dL Albumin/Globulin Ratio (1.0-2.2) - Current Medications Current Medications: Current Medications Generic Name Dose Route Start Last Admin Trade Name Freq PRN Reason Stop Dose Admin Calcium Carbonate/Glycine 1,000 mg 01/05/24 14:00 01/06/24 05:28 Calcium Carbonate Chew 500 Mg Tablet PO 1,000 mg TID BENJAMÍN Administration Cholecalciferol 800 unit 01/05/24 14:00 01/06/24 05:28 Cholecalciferol 400 Unit Tablet PO 800 unit TID BENJAMÍN Administration Hydromorphone HCl 0.5 mg 01/05/24 12:44 01/05/24 22:46 Hydromorphone 0.5 Mg/0.5 Ml Syringe IVP 0.5 mg Q30M PRN Administration Severe Breakthrough pain(7-10) Lactated Ringer's 1,000 mls @ 100 mls/hr 01/05/24 13:00 01/05/24 22:53 Lr IV 100 mls/hr .Q10H BENJAMÍN Administration Prochlorperazine Edisylate 10 mg 01/05/24 18:31 01/06/24 05:27 Prochlorperazine 10 Mg/2 Ml Vial IVP 10 mg Q6HR PRN Administration Nausea / Vomiting - Physical Exam Wound/Incisions: positive: Healing well, Other (Again I removed the stitches and applied Dermabond.) General Appearance: positive: No acute distress Eyes Bilateral: positive: No lid inflammation, Conjunctivae nml, No scleral icterus ENT: positive: No signs of dehydration Neck: positive: Trachea midline, Swelling/bruising (Minimal postoperative.) Respiratory: positive: Chest non-tender, No respiratory distress, Breath sounds nml Cardiovascular: positive: Regular rate & rhythm, No murmur, No gallop Skin: positive: Color nml, No rash, Warm, Dry Neurologic/Psychiatric: positive: Oriented x3, Motor nml, Sensation nml, Mood/affect nml ABX Reporting Has patient been on IV antibiotics over the past 48 hours?: Yes Impression/Plan - Problem List Problem List: D1 s/p parathyroidectomy No hypocalcemia. No paresthesias. Okay to DC home.
[2024-01-06 09:51] VITALS: BP 166/90; O2SAT 93
== END 2024-01-06 10:20 | disposition home or self-care (01) ==
LOC: SDS 09:26 → MS3 13:00 → SDS 01-06 10:20
PROVIDERS: ATTEND Surgery
PROC: 0GBN0ZZ Excision of Right Inferior Parathyroid Gland, Open Approach (ICD-10-PCS; principal; 2024-01-05 10:30)
DX: D35.1 Benign neoplasm of parathyroid gland (principal); E21.2 Other hyperparathyroidism; E66.9 Obesity, unspecified; Z68.37 Body mass index [BMI] 37.0-37.9, adult; I10 Essential (primary) hypertension
CPT/HCPCS: 36415; 60500; 80053; 82310; A9270; J1170; J2372; J3490; J7120

== ENCOUNTER 2024-02-19 16:59 | Emergency (ER) | payer MEDICARE, MEDICAID ==
--- NOTE | 2024-02-19 17:29 | ED Physician Documentation ---
History of Present Illness - Stated complaint Stated Complaint: CHEST PX/ V - Chief complaint Chief Complaint: Cardiac - History obtained from History obtained from: Patient - Additonal information Additional information: The patient comes to the emergency department chief complaint of sudden onset of chest pressure about an hour ago. She states that she had laid down this afternoon to try to take a nap but found that she could not sleep so she decided to get up and make herself some food. She walked into her kitchen and took a drink of water and then began to eat some rice and pineapple when she suddenly began to feel a pressure in her substernal area. She states that it [place] until she finally vomited. She states she vomited all the food she ate and then continued to dry heave afterward. Her last episode was about 30 minutes ago. She states she still has a vague sense of nausea but it is improved, as is the pressure. Patient states she did not have any radiation of the pressure. She denies any shortness of breath, lightheadedness, or diaphoresis. She has a history of "a murmur", though she does not know any more about her murmur than that. She denies any history of known coronary artery disease. She states both her parents had MIs including her father dying of an [place] at 55. The patient states she has never been a smoker. She is not a diabetic. She does have hypertension and takes lisinopril for this. The patient denies any edema in her lower extremities. She has no known history of DVT or PE. She has never been diagnosed with GERD but states she does get reflux occasionally. No other complaints at this time. 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 HEENT: Tonsil/Adenoidectomy - Present Medications Home Medications: Ambulatory Orders Medication Instructions Recorded Confirmed Lisinopril [Zestril] 30 mg PO DAILY 04/01/23 01/05/24 Celecoxib [CeleBREX] 200 mg PO DAILY 12/22/23 01/05/24 Gabapentin [Neurontin] 400 mg PO DAILY 12/22/23 01/05/24 LORazepam [Ativan] 0.5 mg PO HS 12/22/23 01/05/24 Docusate Sodium 100Mg Capsule 100 mg PO DAILY #20 cap 12/24/23 01/05/24 [Colace 100Mg Capsule] - Allergies Allergies/Adverse Reactions: Allergies Allergy/AdvReac Type Severity Reaction Status Date / Time Penicillins Allergy Unknown Verified 12/24/23 10:31 ciprofloxacin [From Cipro] AdvReac Unknown Verified 12/24/23 10:31 - Social History Does the pt smoke?: No Smoking Status: Never smoker Does the pt drink ETOH?: No Does the pt have substance abuse?: No - Immunizations Immunizations are current?: Yes - POLST Patient has POLST: No PD ED PE NORMAL - Vitals Vital signs reviewed: Yes - General General: Alert and oriented X 3, No acute distress, Well developed/nourished - HEENT HEENT: Atraumatic, PERRL, EOMI, Moist mucous membranes - Neck Neck: Supple, no meningeal sign - Cardiac Cardiac: RRR, Strong equal pulses, Other (1 out of 6 systolic murmur.) - Respiratory Respiratory: No respiratory distress, Clear bilaterally - Abdomen Abdomen: Soft, Non tender, Non distended - Derm Derm: Normal color, Warm and dry, No rash - Extremities Extremities: No deformity, No edema, No calf tenderness / cord - Neuro Neuro: Other (Alert, grossly intact) - Psych Psych: Normal mood, Normal affect Results - Vitals Vitals: Vital Signs - 24 hr 02/19/24 17:04 Temperature 36 C L Heart Rate 79 Respiratory 16 Rate Blood Pressure 191/95 H O2 Saturation 97 Oxygen O2 Source Room air - EKG (time done) 1707 EKG releavant findings:: EKG personally interpreted by author of this note. Relevant findings are: Rate: Rate (enter#) (78) Rhythm: NSR Ivins: Normal Intervals: Normal TN QRS: LVH (Probable) Ischemia: Normal ST segments, Non specific changes Other comments: Other comments (Occasional ectopy in the form of PVC.) Compare to prior EKG: Old EKG unavailable Computer interpretation: Agree with computer - Labs Labs: Laboratory Tests 02/19/24 17:20 WBC 9.6 RBC 5.11 Hgb 14.7 Hct 46.5 MCV 91.0 MCH 28.8 MCHC 31.6 L RDW 13.8 Plt Count 240 MPV 10.8 Neut # (Auto) 5.0 Lymph # (Auto) 3.6 H [place] # (Auto) 0.8 Eos # (Auto) 0.1 Baso # (Auto) 0.1 Absolute Nucleated RBC 0.00 Nucleated RBC % 0.0 PD Medical Decision Making - ED course Complexity details: reviewed results, re-evaluated patient, considered differential, d/w patient ED course: The patient had some risk factors for coronary artery disease including age, family history, and hypertension. EKG had been done from triage and looked good overall. She was brought back immediately and blood was drawn and sent. I did order aspirin and sublingual nitroglycerin and Nitropaste for the patient. She declined any antiemetics for the time being. She is fairly hypertensive here and I decided I would wait to see how much the nitro affects her blood pressure before ordering anything else, including the evening dose of lisinopril for which the patient states she is due. I was updated by nursing staff at 1735 that the patient has refused all medications. She has been somewhat adverse to nursing interventions while in the ED already and I have already had a discussion with her about this. For now, we will wait to see what her workup shows. The patient will be signed out to Dr. Mcqueen at change of shift, pending results of studies and final disposition. Departure - Departure Forms: PCP List
[2024-02-19] MEDS: SODIUM CHLORIDE 0.9% 1,000 ML IV STA (17:33)
[2024-02-19] MEDS: ASPIRIN CHEW 81 MG TABLET PO STA (17:33)
[2024-02-19] MEDS: NITROGLYCERIN SL 0.4 MG TABLET SL STA (17:33)
[2024-02-19] MEDS: NITROGLYCERIN 2% PASTE TOP STA (17:33)
[2024-02-19 17:34] LABS: BASOPHILS # (AUTO) 0.1 10^3/uL (0.0-0.1); BASOPHILS % (AUTO) 0.6 %; EOSINOPHILS # (AUTO) 0.1 10^3/uL (0.0-0.7); EOSINOPHILS % (AUTO) 0.6 %; HCT - HEMATOCRIT 46.5 % (37.0-47.0); HGB - HEMOGLOBIN 14.7 g/dL (12.0-16.0); LYMPHOCYTES # (AUTO) 3.6 10^3/uL (1.5-3.5); MEAN CORPUSCULAR HEMOGLOBIN 28.8 pg (27.0-31.0); MEAN CORPUSCULAR HGB CONC 31.6 g/dL (32.0-36.0); MEAN PLATELET VOLUME 10.8 fL (7.9-10.8); MONOCYTES # (AUTO) 0.8 10^3/uL (0.0-1.0); MONOCYTES % (AUTO) 8.7 %; NEUTROPHILS % (AUTO) 51.8 %; PLT - PLATELET COUNT 240 10^3/uL (130-450); RED BLOOD COUNT 5.11 10^6/uL (4.20-5.40); RED CELL DISTRIBUTION WIDTH 13.8 % (12.0-15.0); WHITE BLOOD COUNT 9.6 x10^3/uL (4.8-10.8)
[2024-02-19 17:57] LABS: ALBUMIN 4.2 g/dL (3.2-5.5); ALBUMIN/GLOBULIN RATIO 1.4 (1.0-2.2); BILIRUBIN,TOTAL 0.5 mg/dL (0.2-1.0); CALCIUM 10.5 mg/dL (8.5-10.3); CREATININE 0.7 mg/dL (0.6-1.3); POTASSIUM 3.9 mmol/L (3.5-4.5); TOTAL PROTEIN 7.3 g/dL (6.4-8.9)
[2024-02-19] MEDS: ENALAPRILAT 1.25 MG/ML VIAL IVP STA (18:30)
--- NOTE | 2024-02-19 18:41 | XRAY Report ---
PROCEDURE: Chest 1V INDICATIONS: chest pain TECHNIQUE: One view of the chest was acquired. COMPARISON: Chest radiograph 05/14/2023. FINDINGS: Surgical changes and devices: None. Lungs and pleura: No pleural effusions or pneumothorax. Lungs are clear. Mediastinum: Mediastinal contours appear normal. Heart size is normal. Bones and chest wall: No suspicious bony lesions. Overlying soft tissues appear unremarkable. IMPRESSION: No acute cardiopulmonary process. Reviewed by: Fabi Hannah MD, PhD on 02/19/2024 6:40 PM PDT Approved by: Fabi Hannah MD, PhD on 02/19/2024 6:40 PM PDT Station ID: [id number]
[2024-02-19] MEDS: MAG HYDROX/AL HYDROX/SIMETH 30 ML UDC PO STA (20:14)
[2024-02-19 20:27] VITALS: BP 188/87; O2SAT 99
--- NOTE | 2024-02-19 20:27 | ED Physician Documentation ---
ED Addendum - Addendum Addendum: 02/19/24 20:[address] Mesa approximately 6 PM pending second troponin. I talked with the patient and initially she did not want anything for the pain, but then subsequently wanted some Maalox. Second troponin was done and negative. Remainder of her labs were unremarkable. We note her lipase is mildly elevated but looking at old labs it is chronically elevated. Disposition: Discharged home Condition: Stable Diagnosis: 1. Chest pain
== END 2024-02-19 20:23 | disposition home or self-care (01) ==
LOC: ED 16:59
DX: R07.89 Other chest pain (principal); I10 Essential (primary) hypertension; I49.3 Ventricular premature depolarization
CPT/HCPCS: 36415; 71045; 80053; 83690; 84484; 85025; 93005; 96374; 99283; 99284; A9270

== ENCOUNTER 2024-02-29 09:18 | Outpatient (CLI) | payer MEDICARE, MEDICAID ==
[2024-02-29 09:39] LABS: CALCIUM 10.2 mg/dL (8.5-10.3)
== END 2024-02-29 09:19 | disposition home or self-care (01) ==
LOC: LAB 09:18
PROVIDERS: ATTEND Surgery
DX: E21.5 Disorder of parathyroid gland, unspecified (principal)
CPT/HCPCS: 36415; 82310; 83970